=== PATIENT | female | born 1960 | race African-American/Black ===

== ENCOUNTER 2018-08-21 12:58 | Inpatient (IN) | payer MEDICARE, MEDICAID ==
[~2018-08-21] VITALS: Ht 157.5 cm; Wt 78.2 kg
[~2018-08-21 12:58] MED LIST: ASPI-1159 PO; ATEN50TA PO; ATOR40TA70 PO; BACL-141 GT; CANA100T PO; CLON0.2T PO; DOCU-138 PO; ECON15CR11 TP; FURO-151 PO; GABA-290 PO; INSLAN SQ; KETOCONAZOLE; LEVA15HF4 IH; LIRA0.6P SQ; LISI40TA4 PO; LYR25 PO; METF-416 PO; NASOI BOTHNSTRLS; OLOP2.5D EACHEYE
[2018-08-21 14:54] LABS: BASOPHILS % 1.2 % (0.0-2.0); EOSINOPHILS % 0.3 % (0.0-5.0); HEMATOCRIT. 25.8 % (36.0-48.0); HEMOGLOBIN. 8.1 g/dL (12.0-16.0); LYMPHOCYTES % 13.6 % (20.0-50.0); MEAN CORPUSCULAR HEMOGLOBIN 25.1 pg (28.0-32.0); MEAN CORPUSCULAR VOLUME 79.7 fL (81.0-99.0); MEAN PLATELET VOLUME 7.5 fl (7.4-10.4); MONOCYTES % 3.2 % (2.0-8.0); NEUTROPHILS % 81.7 % (40.0-76.0); PLATELET 455 x1000/uL (130-400); RED BLOOD CELL COUNT 3.23 mill/uL (4.2-5.4); RED CELL DISTRIBUTION WIDTH 15.9 % (11.6-14.6)
[2018-08-21 15:02] LABS: CHLORIDE 102 mEq/L (98-107); PROTHROMBIN TIME 9.9 sec (9.1-11.1)
[2018-08-21] MEDS ORDERED: DOCUSATE SODIUM 100MG CAPSULE PO PRN (15:30)
[2018-08-21] MEDS ORDERED: ACETAMINOPHEN 325MG TABLET PO PRN (15:30)
[2018-08-21] MEDS ORDERED: ONDANSETRON HCL 4MG/2ML INJ IV PRN (15:30)
[2018-08-21] MEDS ORDERED: KETOROLAC 30MG/ML VIAL IV ONE (15:30)
[2018-08-21 15:56] LABS: CLARITY URINE CLEAR (CLEAR); COLOR URINE YELLOW (YELLOW); KETONES URINE NEGATIVE (NEGATIVE); LEUKOCYTE ESTERASE URINE NEGATIVE (NEGATIVE); NITRITE URINE NEGATIVE (NEGATIVE); OCCULT BLOOD URINE NEGATIVE (NEGATIVE); PROTEIN URINE NEGATIVE (NEGATIVE); SPECIFIC GRAVITY URINE 1.022 (1.005-1.030); UROBILINOGEN URINE 0.2 E.U./dL (0.2-1.0)
[2018-08-21] MEDS: CLONIDINE 0.1MG TABLET PO PRN (16:19)
[2018-08-21] MEDS ORDERED: MORPHINE SULFATE 2 MG/ML CPJ (NOT FOR IM USE) IV PRN (16:45)
[2018-08-21] MEDS ORDERED: MORPHINE SULFATE 4 MG/ML CPJ (NOT FOR IM USE) IV PRN ×2 (16:46→19:20)
[2018-08-21] MEDS ORDERED: HYDRALAZINE 20MG/ML VIAL IV PRN (19:15)
[2018-08-21] MEDS ORDERED: HYDRALAZINE 20MG/ML VIAL IV NR (19:15)
[2018-08-21 21:48] VITALS: BP 189/85
[2018-08-21 22:00] VITALS: BP 189/85
[2018-08-21] MEDS ORDERED: CANA100T MT (23:19)
[2018-08-21] MEDS ORDERED: HYDR50TA55 MT (23:19)
[2018-08-21] MEDS ORDERED: PREG100C MT (23:19)
[2018-08-21] MEDS ORDERED: CLOT14.2 TP (23:19)
[2018-08-21] MEDS ORDERED: ATOR20TA65 MT (23:19)
[2018-08-21] MEDS ORDERED: DIPH25TA24 MT (23:19)
[2018-08-21] MEDS ORDERED: LORA1TAB MT (23:19)
[2018-08-21] MEDS ORDERED: BUSP7.5T6 MT (23:19)
[2018-08-21] MEDS ORDERED: DULO60CA63 MT (23:19)
[2018-08-21] MEDS ORDERED: POTA10CA42 MT (23:19)
[2018-08-21] MEDS: HYDROMORPHONE HCL/PF 2MG/ML CPJ IV PRN (23:32)
[2018-08-21] MEDS: LISINOPRIL 20MG TABLET PO SCH (23:57)
[2018-08-21] MEDS: AMLODIPINE 10MG TABLET PO SCH (23:58)
[2018-08-22] VITALS: BP 170/66
[2018-08-22] MEDS: DEXAMETHASONE 4MG/ML 1ML VIAL IV SCH ×4 (01:39→17:07)
[2018-08-22] MEDS: SODIUM CHLORIDE 0.45% 1,000 ML IV SCH ×2 (01:41→15:40)
[2018-08-22] MEDS: LORAZEPAM 2MG/ML CPJ IV PRN ×3 (01:57→18:09)
[2018-08-22 04:00] VITALS: BP 164/71
[2018-08-22] MEDS ORDERED: DEXTROSE 50% WATER 50ML SYRINGE IV PRN (04:15)
[2018-08-22] MEDS: BLOOD SUGAR DIAGNOSTIC STRIP TEST SCH ×4 (05:50→20:31)
[2018-08-22 05:58] VITALS: BP 132/90
[2018-08-22] MEDS: HYDROMORPHONE HCL/PF 2MG/ML CPJ IV PRN ×5 (06:00→23:17)
[2018-08-22] MEDS: INSULIN LISPRO 100 UNITS/ML SUBCUT SCH ×4 (07:05→20:35)
[2018-08-22 07:30] VITALS: BP 149/79
[2018-08-22] MEDS: LISINOPRIL 20MG TABLET PO SCH ×2 (09:00→20:10)
[2018-08-22] MEDS: AMLODIPINE 10MG TABLET PO SCH (09:00)
[2018-08-22] MEDS: IPRATROPIUM/ALBUTEROL 0.5-3(2.5)MG/3ML NEB INH SCH (09:30)
[2018-08-22] MEDS ORDERED: INFLUENZA VIRUS VACCINE(AFLURIA) 0.5ML SYR IM ONE (10:00)
[2018-08-22 13:10] LABS: BASOPHILS % 0.5 % (0.0-2.0); HEMATOCRIT. 28.9 % (36.0-48.0); LYMPHOCYTES % 9.1 % (20.0-50.0); MEAN CORPUSCULAR HEMOGLOBIN 24.6 pg (28.0-32.0); MEAN CORPUSCULAR VOLUME 78.8 fL (81.0-99.0); MONOCYTES % 2.4 % (2.0-8.0); PLATELET 522 x1000/uL (130-400); RED BLOOD CELL COUNT 3.66 mill/uL (4.2-5.4); RED CELL DISTRIBUTION WIDTH 16.1 % (11.6-14.6)
[2018-08-22 14:05] LABS: CHLORIDE 101 mEq/L (98-107)
[2018-08-22 14:13] LABS: LDL CHOLESTEROL 91 mg/dL (5-100)
[2018-08-22 14:14] LABS: HDL CHOLESTEROL 73 mg/dL (40-59)
[2018-08-22 16:00] VITALS: BP 148/83
[2018-08-22 20:00] VITALS: BP 152/76
[2018-08-23] VITALS (56 sets, daily range): BP systolic 89–240; BP diastolic 54–168
[2018-08-23] MEDS: DEXAMETHASONE 4MG/ML 1ML VIAL IV SCH ×2 (00:14→06:06)
[2018-08-23] MEDS: IPRATROPIUM/ALBUTEROL 0.5-3(2.5)MG/3ML NEB INH SCH (02:10)
[2018-08-23] MEDS: HYDROMORPHONE HCL/PF 2MG/ML CPJ IV PRN ×4 (02:25→15:00)
[2018-08-23] MEDS: LORAZEPAM 2MG/ML CPJ IV PRN (03:01)
[2018-08-23 07:22] LABS: BASOPHILS % 0.3 % (0.0-2.0); HEMOGLOBIN. 8.2 g/dL (12.0-16.0); MEAN CORPUSCULAR HEMOGLOBIN 24.8 pg (28.0-32.0); MEAN CORPUSCULAR VOLUME 78.7 fL (81.0-99.0); MEAN PLATELET VOLUME 7.8 fl (7.4-10.4); MONOCYTES % 5.3 % (2.0-8.0); NEUTROPHILS % 84.4 % (40.0-76.0); PLATELET 492 x1000/uL (130-400); RED CELL DISTRIBUTION WIDTH 16.1 % (11.6-14.6)
[2018-08-23] MEDS: BLOOD SUGAR DIAGNOSTIC STRIP TEST SCH ×5 (07:32→23:56)
[2018-08-23] MEDS: INSULIN LISPRO 100 UNITS/ML SUBCUT SCH ×4 (07:32→23:57)
[2018-08-23 07:54] LABS: CHLORIDE 103 mEq/L (98-107)
[2018-08-23 08:16] LABS: PHOSPHORUS 4.3 mg/dL (2.5-4.9)
[2018-08-23 08:17] LABS: LDL CHOLESTEROL 86 mg/dL (5-100)
[2018-08-23 08:23] LABS: HDL CHOLESTEROL 71 mg/dL (40-59)
[2018-08-23] MEDS ORDERED: NORMAL SALINE 0.9% 10 ML SYR ONE (08:33)
[2018-08-23] MEDS ORDERED: GELATIN SPONGE,COMPRESSED SZ 100 ONE (08:33)
[2018-08-23] MEDS ORDERED: LIDOCAINE HCL/EPINEPHRINE 1%-EPI 1:100,000 20 ML VIAL ONE (08:33)
[2018-08-23] MEDS ORDERED: BACITRACIN 50,000 UNITS/VIAL ONE (08:33)
[2018-08-23] MEDS ORDERED: THROMBIN (BOVINE) 5000 UNITS/VIAL TOP ONE (08:33)
[2018-08-23] MEDS: AMLODIPINE 10MG TABLET PO SCH (09:00)
[2018-08-23] MEDS ORDERED: ROCURONIUM BROMIDE 10MG/ML VIAL 5ML IV ONE ×2 (09:14→09:50)
[2018-08-23] MEDS ORDERED: FENTANYL CITRATE/PF 50MCG/ML 2ML VIAL ONE (09:14)
[2018-08-23] MEDS ORDERED: NEOSTIGMINE METHYLSULFATE 1MG/ML 10 ML VIAL ONE (09:15)
[2018-08-23] MEDS ORDERED: MIDAZOLAM HCL 2 MG/2 ML VIAL ONE (09:15)
[2018-08-23] MEDS ORDERED: PROPOFOL 200MG/20ML VIAL IV ONE (09:15)
[2018-08-23] MEDS ORDERED: GLYCOPYRROLATE 0.2 MG/ML 2ML VIAL ONE (09:15)
[2018-08-23] MEDS ORDERED: DEXAMETHASONE 4MG/ML 1ML VIAL ONE (09:41)
[2018-08-23] MEDS ORDERED: ONDANSETRON HCL 4MG/2ML INJ ONE (09:41)
[2018-08-23] MEDS ORDERED: HYDROMORPHONE HCL/PF 2MG/ML (OR) ONE (09:42)
[2018-08-23] MEDS ORDERED: ONDANSETRON HCL 4MG/2ML INJ IV PRN (10:15)
[2018-08-23] MEDS ORDERED: HYDROMORPHONE HCL/PF 2MG/ML CPJ IV PRN (10:15)
[2018-08-23] MEDS ORDERED: MEPERIDINE HCL/PF 25MG/ML CPJ IV PRN (10:15)
[2018-08-23] MEDS: DEXT 5%/LACTATED RINGERS 1,000 ML IV SCH ×2 (11:30→22:33)
[2018-08-23] MEDS ORDERED: HYDROMORPHONE PCA 10MG/50ML IV PRN (11:45)
[2018-08-23] MEDS ORDERED: NALOXONE INJ IV PRN (11:45)
[2018-08-23] MEDS ORDERED: ONDANSETRON INJ IV PRN (11:45)
[2018-08-23] MEDS: LABETALOL 5MG/ML SYR 20 MG/4 ML SYRINGE IV PRN ×3 (11:51→12:16)
[2018-08-23] MEDS ORDERED: NICARDIPINE 100 MG in SODIUM CHLORIDE 0.9% 60 ML IV PRN (12:00)
[2018-08-23] MEDS: PROPOFOL 10MG/ML 100ML 100 ML IV PRN ×3 (12:21→22:55)
[2018-08-23 12:31] LABS: BG BASE EXCESS -4.8 mmol/L (-2.0-2.0); BG CARBOXYHEMOGLOBIN 0.8 % (0.5-1.5); BG DEOXYHEMOGLOBIN 1.9 % (0.0-5.0); BG FRACTION INSPIRED OXYGEN 60; BG HCO3 ACT 21.5 mmol/L (22.0-26.0); BG METHEMOGLOBIN 0.2 % (0.0-1.5); BG OXYGEN SATURATION 98.1 % (92.0-98.5); BG OXYHEMOGLOBIN 97.1 % (94.0-97.0); BG PCO2 44.9 mmHg (35.0-45.0); BG PH 7.299 (7.350-7.450); BG PO2 131.7 mmHg (75.0-100.0); BG SAMPLE SITE RIGHT BRACHIAL; BG TIDAL VOLUME(mL) 500 mL; BG TOTAL HEMOGLOBIN 11.7 g/dL (12.0-18.0); BG VENT MODE VENT - A/C; BG VENT RATE 10 set
[2018-08-23] MEDS ORDERED: CEFAZOLIN SODIUM 1000MG/VIAL IV SCH (14:00)
[2018-08-23] MEDS ORDERED: DEXTROSE 50% WATER 50ML SYRINGE IV PRN ×2 (14:00→15:15)
[2018-08-23] MEDS ORDERED: BLOOD SUGAR DIAGNOSTIC STRIP TEST SCH (14:00)
[2018-08-23] MEDS ORDERED: IPRATROPIUM/ALBUTEROL 0.5-3(2.5)MG/3ML NEB HHN PRN (14:15)
[2018-08-23] MEDS: DEXAMETHASONE 10 MG/ML VIAL IV SCH ×3 (14:54→23:48)
[2018-08-23] MEDS: CEFAZOLIN 1000MG PREMIX 50 ML IV SCH ×2 (15:15→22:32)
[2018-08-23] MEDS ORDERED: INSULIN LISPRO 100 UNITS/ML SUBCUT SCH (17:00)
[2018-08-23] MEDS: ENALAPRIL 2.5MG/2ML VIAL 2ML IV SCH ×2 (18:00→23:48)
[2018-08-23] MEDS: MORPHINE SULFATE 4 MG/ML CPJ (NOT FOR IM USE) IV PRN (23:47)
[2018-08-24] VITALS (84 sets, daily range): BP systolic 90–164; BP diastolic 18–117
[2018-08-24] MEDS: IPRATROPIUM/ALBUTEROL 0.5-3(2.5)MG/3ML NEB INH SCH ×6 (00:08→20:38)
[2018-08-24] MEDS: PROPOFOL 10MG/ML 100ML 100 ML IV PRN ×6 (01:17→23:03)
[2018-08-24] MEDS: MORPHINE SULFATE 4 MG/ML CPJ (NOT FOR IM USE) IV PRN ×2 (04:07→11:34)
[2018-08-24] MEDS: DEXAMETHASONE 10 MG/ML VIAL IV SCH (05:17)
[2018-08-24] MEDS: CEFAZOLIN 1000MG PREMIX 50 ML IV SCH ×3 (05:17→21:15)
[2018-08-24] MEDS: BLOOD SUGAR DIAGNOSTIC STRIP TEST SCH ×4 (05:18→23:05)
[2018-08-24] MEDS: ENALAPRIL 2.5MG/2ML VIAL 2ML IV SCH ×4 (05:18→23:01)
[2018-08-24 06:00] LABS: HEMATOCRIT. 22.9 % (36.0-48.0); HEMOGLOBIN. 7.2 g/dL (12.0-16.0); MEAN CORPUSCULAR HEMOGLOBIN 24.9 pg (28.0-32.0); MEAN CORPUSCULAR VOLUME 79.2 fL (81.0-99.0); MEAN PLATELET VOLUME 7.7 fl (7.4-10.4); PLATELET 416 x1000/uL (130-400)
[2018-08-24 06:02] LABS: CHLORIDE 111 mEq/L (98-107)
[2018-08-24] MEDS: INSULIN LISPRO 100 UNITS/ML SUBCUT SCH ×4 (06:26→23:05)
[2018-08-24] MEDS: FENTANYL CITRATE/PF 500 MCG in SODIUM CHLORIDE 0.9% 40 ML IV PRN ×2 (06:28→09:49)
[2018-08-24] MEDS: DEXT 5%/LACTATED RINGERS 1,000 ML IV SCH ×3 (07:30→17:30)
[2018-08-24] MEDS: AMLODIPINE 10MG TABLET PO SCH (08:05)
[2018-08-24] MEDS: PANTOPRAZOLE SODIUM 40 MG/VIAL IV SCH (09:12)
[2018-08-24] MEDS: HYDRALAZINE 20MG/ML VIAL IV PRN (09:52)
[2018-08-24 10:35] LABS: PLATELET ESTIMATE SLIGHTLY INCREASED
[2018-08-24] MEDS ORDERED: LIDOCAINE HCL 1% 20ML VIAL (Pyxis) INJ ONE (10:42)
[2018-08-24] MEDS: DEXAMETHASONE 4MG/ML 1ML VIAL IV SCH ×3 (12:39→23:01)
[2018-08-24] MEDS ORDERED: PROPOFOL 10MG/ML 100ML 100 ML IV PRN ×2 (13:30→16:00)
[2018-08-24] MEDS: FENTANYL CITRATE/PF 1,000 MCG in SODIUM CHLORIDE 0.9% 80 ML IV PRN ×2 (15:36→23:58)
[2018-08-24] MEDS: IPRATROPIUM/ALBUTEROL 0.5-3(2.5)MG/3ML NEB HHN SCH ×2 (20:10→20:15)
[2018-08-24] MEDS: QUETIAPINE FUMARATE 25MG TABLET PO SCH (21:00)
[2018-08-25] VITALS (92 sets, daily range): BP systolic 104–165; BP diastolic 54–110
[2018-08-25] MEDS: DEXT 5%/LACTATED RINGERS 1,000 ML IV SCH ×3 (02:04→23:54)
[2018-08-25] MEDS: PROPOFOL 10MG/ML 100ML 100 ML IV PRN ×2 (02:37→06:39)
[2018-08-25] MEDS: IPRATROPIUM/ALBUTEROL 0.5-3(2.5)MG/3ML NEB INH SCH (02:41)
[2018-08-25] MEDS: BLOOD SUGAR DIAGNOSTIC STRIP TEST SCH ×4 (05:24→23:53)
[2018-08-25] MEDS: DEXAMETHASONE 4MG/ML 1ML VIAL IV SCH ×2 (05:37→11:54)
[2018-08-25] MEDS: ENALAPRIL 2.5MG/2ML VIAL 2ML IV SCH ×4 (05:38→23:53)
[2018-08-25] MEDS: INSULIN LISPRO 100 UNITS/ML SUBCUT SCH ×4 (05:39→23:55)
[2018-08-25] MEDS: CEFAZOLIN 1000MG PREMIX 50 ML IV SCH ×2 (06:45→14:24)
[2018-08-25] MEDS: QUETIAPINE FUMARATE 25MG TABLET PO SCH (08:10)
[2018-08-25] MEDS: PANTOPRAZOLE SODIUM 40 MG/VIAL IV SCH (08:10)
[2018-08-25] MEDS: LORAZEPAM 2MG/ML CPJ IV PRN ×2 (08:10→12:53)
[2018-08-25] MEDS: AMLODIPINE 10MG TABLET PO SCH (08:10)
[2018-08-25] MEDS: DIPHENHYDRAMINE INJ IV PRN ×2 (08:10→13:04)
[2018-08-25] MEDS: FENTANYL CITRATE/PF 1,000 MCG in SODIUM CHLORIDE 0.9% 80 ML IV PRN (08:11)
[2018-08-25] MEDS: IPRATROPIUM/ALBUTEROL 0.5-3(2.5)MG/3ML NEB HHN SCH ×2 (08:12→13:48)
[2018-08-25 08:27] LABS: BASOPHILS % 0.3 % (0.0-2.0); HEMATOCRIT. 25.6 % (36.0-48.0); HEMOGLOBIN. 8.2 g/dL (12.0-16.0); LYMPHOCYTES % 8.8 % (20.0-50.0); MEAN CORPUSCULAR HEMOGLOBIN 25.8 pg (28.0-32.0); MEAN CORPUSCULAR VOLUME 80.7 fL (81.0-99.0); MEAN PLATELET VOLUME 7.8 fl (7.4-10.4); MONOCYTES % 8.4 % (2.0-8.0); NEUTROPHILS % 82.5 % (40.0-76.0); PLATELET 367 x1000/uL (130-400); RED BLOOD CELL COUNT 3.17 mill/uL (4.2-5.4)
[2018-08-25] MEDS ORDERED: PROPOFOL 10MG/ML 100ML 100 ML IV PRN (08:30)
[2018-08-25 08:32] LABS: CHLORIDE 114 mEq/L (98-107)
[2018-08-25] MEDS: MORPHINE SULFATE 4 MG/ML CPJ (NOT FOR IM USE) IV PRN ×3 (08:38→23:53)
[2018-08-25 08:43] LABS: TOTAL IRON BINDING CAPACITY 359 ug/dL (250-450)
[2018-08-25 10:46] LABS: BG BASE EXCESS -0.8 mmol/L (-2.0-2.0); BG CARBOXYHEMOGLOBIN 0.8 % (0.5-1.5); BG DEOXYHEMOGLOBIN 1.2 % (0.0-5.0); BG FRACTION INSPIRED OXYGEN 40; BG HCO3 ACT 23.6 mmol/L (22.0-26.0); BG METHEMOGLOBIN 0.2 % (0.0-1.5); BG OXYGEN SATURATION 98.8 % (92.0-98.5); BG OXYHEMOGLOBIN 97.8 % (94.0-97.0); BG PCO2 37.8 mmHg (35.0-45.0); BG PH 7.414 (7.350-7.450); BG PO2 161.3 mmHg (75.0-100.0); BG SAMPLE SITE LEFT BRACHIAL; BG TOTAL HEMOGLOBIN 8.7 g/dL (12.0-18.0); BG VENT MODE VENT - CPAP
[2018-08-25] MEDS: HYDRALAZINE 20MG/ML VIAL IV PRN (11:53)
[2018-08-25] MEDS: CLONIDINE 0.1MG TABLET PO PRN ×2 (11:54→12:07)
[2018-08-25] MEDS ORDERED: LISINOPRIL 20MG TABLET PO SCH (12:15)
[2018-08-25] MEDS ORDERED: NALOXONE HCL 0.4 MG/ML 1ML VIAL IV NR (16:45)
[2018-08-25] MEDS ORDERED: DOCUSATE SODIUM 250MG CAPSULE PO SCH (17:00)
[2018-08-25] MEDS: LISINOPRIL 20MG TABLET PO SCH (21:41)
[2018-08-26] VITALS (67 sets, daily range): BP systolic 117–187; BP diastolic 17–144
[2018-08-26] MEDS ORDERED: MORPHINE SULFATE 10 MG/ML CPJ IV ONE (00:10)
[2018-08-26] MEDS: MORPHINE SULFATE 4 MG/ML CPJ (NOT FOR IM USE) IV PRN ×9 (00:30→23:40)
[2018-08-26] MEDS: LORAZEPAM 2MG/ML CPJ IV PRN (03:01)
[2018-08-26 05:54] LABS: BASOPHILS % 0.5 % (0.0-2.0); EOSINOPHILS % 0.2 % (0.0-5.0); HEMATOCRIT. 26.2 % (36.0-48.0); HEMOGLOBIN. 8.2 g/dL (12.0-16.0); LYMPHOCYTES % 23.6 % (20.0-50.0); MEAN CORPUSCULAR HEMOGLOBIN 25.7 pg (28.0-32.0); MEAN CORPUSCULAR VOLUME 82.3 fL (81.0-99.0); MEAN PLATELET VOLUME 7.7 fl (7.4-10.4); MONOCYTES % 9.8 % (2.0-8.0); NEUTROPHILS % 65.9 % (40.0-76.0); PLATELET 345 x1000/uL (130-400); RED BLOOD CELL COUNT 3.18 mill/uL (4.2-5.4); RED CELL DISTRIBUTION WIDTH 16.3 % (11.6-14.6)
[2018-08-26 06:06] LABS: CHLORIDE 115 mEq/L (98-107)
[2018-08-26] MEDS: ENALAPRIL 2.5MG/2ML VIAL 2ML IV SCH (06:07)
[2018-08-26] MEDS: BLOOD SUGAR DIAGNOSTIC STRIP TEST SCH ×4 (06:07→23:43)
[2018-08-26] MEDS: INSULIN LISPRO 100 UNITS/ML SUBCUT SCH ×4 (06:08→23:43)
[2018-08-26] MEDS ORDERED: POTASSIUM CHLORIDE 20MEQ/PACKET PO SCH (08:00)
[2018-08-26] MEDS: IPRATROPIUM/ALBUTEROL 0.5-3(2.5)MG/3ML NEB INH SCH ×2 (08:48→14:10)
[2018-08-26] MEDS ORDERED: DOCUSATE SODIUM SUGAR FREE 100MG/10ML UDC NG SCH (09:15)
[2018-08-26] MEDS: LISINOPRIL 20MG TABLET PO SCH ×2 (09:15→20:31)
[2018-08-26] MEDS: AMLODIPINE 10MG TABLET PO SCH (09:15)
[2018-08-26] MEDS: PANTOPRAZOLE SODIUM 40 MG/VIAL IV SCH (09:15)
[2018-08-26] MEDS: DOCUSATE SODIUM SUGAR FREE 100MG/10ML UDC NG SCH ×2 (09:41→18:20)
[2018-08-26] MEDS: DEXT 5%/LACTATED RINGERS 1,000 ML IV SCH (09:43)
[2018-08-26] MEDS: BUSPIRONE HCL 5MG TABLET PO SCH ×2 (09:50→20:32)
[2018-08-26] MEDS: DULOXETINE HCL 60MG DR CAPSULE PO SCH (09:50)
[2018-08-26] MEDS: HYDRALAZINE 20MG/ML VIAL IV PRN (11:57)
[2018-08-26] MEDS: DEXAMETHASONE 10 MG/ML VIAL IV SCH (12:21)
[2018-08-26] MEDS: CLONIDINE 0.1MG TABLET PO SCH ×2 (14:41→22:29)
[2018-08-26] MEDS: ATENOLOL 50 MG TABLET PO SCH (20:32)
[2018-08-26] MEDS: IPRATROPIUM/ALBUTEROL 0.5-3(2.5)MG/3ML NEB HHN SCH (21:01)
[2018-08-27] VITALS (28 sets, daily range): BP systolic 108–188; BP diastolic 53–96
[2018-08-27] MEDS: IPRATROPIUM/ALBUTEROL 0.5-3(2.5)MG/3ML NEB HHN SCH ×2 (01:26→19:50)
[2018-08-27] MEDS: MORPHINE SULFATE 4 MG/ML CPJ (NOT FOR IM USE) IV PRN ×7 (01:38→17:11)
[2018-08-27] MEDS: CLONIDINE 0.1MG TABLET PO SCH ×3 (05:11→22:51)
[2018-08-27] MEDS: BLOOD SUGAR DIAGNOSTIC STRIP TEST SCH ×4 (05:13→21:00)
[2018-08-27] MEDS: INSULIN LISPRO 100 UNITS/ML SUBCUT SCH ×3 (05:15→17:03)
[2018-08-27] MEDS: PANTOPRAZOLE SODIUM 40 MG/VIAL IV SCH (08:19)
[2018-08-27] MEDS: DEXAMETHASONE 10 MG/ML VIAL IV SCH (08:20)
[2018-08-27] MEDS: DOCUSATE SODIUM SUGAR FREE 100MG/10ML UDC NG SCH ×2 (08:20→16:57)
[2018-08-27] MEDS: LISINOPRIL 20MG TABLET PO SCH ×2 (08:21→22:51)
[2018-08-27] MEDS: ATENOLOL 50 MG TABLET PO SCH ×2 (08:21→22:50)
[2018-08-27] MEDS: DULOXETINE HCL 60MG DR CAPSULE PO SCH (08:22)
[2018-08-27] MEDS: AMLODIPINE 10MG TABLET PO SCH (08:22)
[2018-08-27] MEDS: BUSPIRONE HCL 5MG TABLET PO SCH (08:22)
[2018-08-27 09:03] LABS: BASOPHILS % 0.6 % (0.0-2.0); EOSINOPHILS % 0.8 % (0.0-5.0); HEMATOCRIT. 27.1 % (36.0-48.0); HEMOGLOBIN. 8.7 g/dL (12.0-16.0); LYMPHOCYTES % 22.2 % (20.0-50.0); MEAN CORPUSCULAR HEMOGLOBIN 26.1 pg (28.0-32.0); MEAN CORPUSCULAR VOLUME 81.2 fL (81.0-99.0); MEAN PLATELET VOLUME 7.6 fl (7.4-10.4); MONOCYTES % 8.2 % (2.0-8.0); NEUTROPHILS % 68.2 % (40.0-76.0); PLATELET 383 x1000/uL (130-400); RED BLOOD CELL COUNT 3.34 mill/uL (4.2-5.4); RED CELL DISTRIBUTION WIDTH 16.2 % (11.6-14.6)
[2018-08-27 09:42] LABS: CHLORIDE 104 mEq/L (98-107)
[2018-08-27] MEDS: ASPIRIN 81MG TABLET PO SCH ×2 (13:15→15:19)
[2018-08-27] MEDS: IPRATROPIUM/ALBUTEROL 0.5-3(2.5)MG/3ML NEB INH SCH (13:46)
[2018-08-27] MEDS ORDERED: DEXTROSE 50% WATER 50ML SYRINGE IV PRN (14:00)
[2018-08-27] MEDS: LORAZEPAM 2MG/ML CPJ IV PRN (18:56)
[2018-08-28] VITALS: BP 112/54
[2018-08-28] MEDS: INSULIN LISPRO 100 UNITS/ML SUBCUT SCH ×5 (00:35→23:40)
[2018-08-28] MEDS: BUSPIRONE HCL 5MG TABLET PO SCH ×3 (00:39→22:21)
[2018-08-28] MEDS: MORPHINE SULFATE 4 MG/ML CPJ (NOT FOR IM USE) IV PRN ×6 (01:38→22:01)
[2018-08-28] MEDS: IPRATROPIUM/ALBUTEROL 0.5-3(2.5)MG/3ML NEB HHN SCH ×5 (01:53→21:07)
[2018-08-28 04:00] VITALS: BP 127/64
[2018-08-28] MEDS: CLONIDINE 0.1MG TABLET PO SCH ×3 (06:43→22:00)
[2018-08-28 07:25] LABS: BASOPHILS % 0.3 % (0.0-2.0); EOSINOPHILS % 1.9 % (0.0-5.0); HEMOGLOBIN. 8.6 g/dL (12.0-16.0); LYMPHOCYTES % 25.7 % (20.0-50.0); MEAN CORPUSCULAR HEMOGLOBIN 25.8 pg (28.0-32.0); MEAN CORPUSCULAR VOLUME 80.8 fL (81.0-99.0); MEAN PLATELET VOLUME 7.7 fl (7.4-10.4); MONOCYTES % 7.5 % (2.0-8.0); NEUTROPHILS % 64.6 % (40.0-76.0); PLATELET 375 x1000/uL (130-400); RED BLOOD CELL COUNT 3.34 mill/uL (4.2-5.4); RED CELL DISTRIBUTION WIDTH 16.2 % (11.6-14.6)
[2018-08-28 07:50] LABS: CHLORIDE 104 mEq/L (98-107)
[2018-08-28 07:59] LABS: PHOSPHORUS 3.2 mg/dL (2.5-4.9)
[2018-08-28 08:00] VITALS: BP 110/59
[2018-08-28] MEDS: BLOOD SUGAR DIAGNOSTIC STRIP TEST SCH ×4 (08:14→21:00)
[2018-08-28] MEDS: AMLODIPINE 10MG TABLET PO SCH (08:30)
[2018-08-28] MEDS: LISINOPRIL 20MG TABLET PO SCH ×2 (08:31→21:00)
[2018-08-28] MEDS: PANTOPRAZOLE SODIUM 40 MG/VIAL IV SCH (08:31)
[2018-08-28] MEDS: DEXAMETHASONE 10 MG/ML VIAL IV SCH (08:31)
[2018-08-28] MEDS: DOCUSATE SODIUM SUGAR FREE 100MG/10ML UDC NG SCH (08:31)
[2018-08-28] MEDS: DULOXETINE HCL 60MG DR CAPSULE PO SCH (08:31)
[2018-08-28] MEDS: ATENOLOL 50 MG TABLET PO SCH ×2 (08:47→21:00)
[2018-08-28] MEDS ORDERED: POTASSIUM CHLORIDE 20MEQ TABLET SR PO SCH (09:15)
[2018-08-28] MEDS: IPRATROPIUM/ALBUTEROL 0.5-3(2.5)MG/3ML NEB INH SCH ×2 (09:34→20:11)
[2018-08-28] MEDS ORDERED: NA PHOS,M-B/NA PHOS,DI-BA ENEMA 118ML PR SCH (10:45)
[2018-08-28] MEDS ORDERED: BISACODYL 10MG SUPP PR PRN (10:45)
[2018-08-28 12:00] VITALS: BP 127/59
[2018-08-28] MEDS: LACTULOSE 20G/30ML UDC PO SCH ×2 (12:42→14:23)
[2018-08-28] MEDS: GABAPENTIN 100MG CAPSULE PO SCH ×2 (14:23→22:04)
[2018-08-28 16:00] VITALS: BP 114/53
[2018-08-28] MEDS: DOCUSATE SODIUM 100MG CAPSULE PO SCH (16:49)
[2018-08-28] MEDS ORDERED: LACTULOSE 20G/30ML UDC PO SCH (18:00)
[2018-08-28 20:00] VITALS: BP 121/1
[2018-08-28] MEDS ORDERED: POLYETHYLENE GLYCOL 3350 (17GM) 1 DOSE PACK PO SCH (21:00)
[2018-08-29] VITALS: BP 119/67
[2018-08-29] MEDS: IPRATROPIUM/ALBUTEROL 0.5-3(2.5)MG/3ML NEB HHN SCH ×2 (01:47→11:42)
[2018-08-29] MEDS: MORPHINE SULFATE 4 MG/ML CPJ (NOT FOR IM USE) IV PRN ×2 (02:19→12:08)
[2018-08-29] MEDS: LORAZEPAM 2MG/ML CPJ IV PRN (02:19)
[2018-08-29 04:00] VITALS: BP 143/75
[2018-08-29] MEDS: GABAPENTIN 100MG CAPSULE PO SCH ×2 (06:21→16:39)
[2018-08-29] MEDS: CLONIDINE 0.1MG TABLET PO SCH ×2 (06:21→16:39)
[2018-08-29 07:12] LABS: BASOPHILS % 0.2 % (0.0-2.0); EOSINOPHILS % 2.1 % (0.0-5.0); HEMATOCRIT. 25.8 % (36.0-48.0); HEMOGLOBIN. 8.2 g/dL (12.0-16.0); LYMPHOCYTES % 28.4 % (20.0-50.0); MEAN CORPUSCULAR HEMOGLOBIN 25.8 pg (28.0-32.0); MEAN CORPUSCULAR VOLUME 81.3 fL (81.0-99.0); MEAN PLATELET VOLUME 7.6 fl (7.4-10.4); MONOCYTES % 7.7 % (2.0-8.0); NEUTROPHILS % 61.6 % (40.0-76.0); PLATELET 364 x1000/uL (130-400); RED BLOOD CELL COUNT 3.17 mill/uL (4.2-5.4); RED CELL DISTRIBUTION WIDTH 16.3 % (11.6-14.6)
[2018-08-29] MEDS: BLOOD SUGAR DIAGNOSTIC STRIP TEST SCH ×2 (07:20→12:17)
[2018-08-29] MEDS: BUSPIRONE HCL 5MG TABLET PO SCH (08:33)
[2018-08-29] MEDS: ATENOLOL 50 MG TABLET PO SCH (08:33)
[2018-08-29] MEDS: DOCUSATE SODIUM 100MG CAPSULE PO SCH (08:33)
[2018-08-29] MEDS: LISINOPRIL 20MG TABLET PO SCH (08:33)
[2018-08-29] MEDS: DULOXETINE HCL 60MG DR CAPSULE PO SCH (08:33)
[2018-08-29] MEDS: ASPIRIN 81MG TABLET PO SCH (08:33)
[2018-08-29] MEDS: AMLODIPINE 10MG TABLET PO SCH (08:33)
[2018-08-29] MEDS: DEXAMETHASONE 10 MG/ML VIAL IV SCH (08:36)
[2018-08-29] MEDS: INSULIN LISPRO 100 UNITS/ML SUBCUT SCH ×2 (08:41→12:16)
[2018-08-29] MEDS ORDERED: NA PHOS,M-B/NA PHOS,DI-BA ENEMA 118ML PR PRN (09:00)
[2018-08-29] MEDS: PANTOPRAZOLE SODIUM 40 MG/VIAL IV SCH (09:00)
[2018-08-29 09:50] LABS: CHLORIDE 105 mEq/L (98-107)
[2018-08-29 09:51] LABS: PHOSPHORUS 3.3 mg/dL (2.5-4.9)
[2018-08-29 12:08] VITALS: BP 120/66
== END 2018-08-29 17:00 | DRG 471 ==
LOC: ER 12:58 → 8WST 15:26 → EDBEDREQSVC 15:33 → EDBEDREQ 15:33 → ENRESERV 16:15 → CANRESERV 16:15 → ENRESERV 16:16 → CANRESERV 16:16 → EDBEDREQSVC 17:47 → ENRESERV 19:38 → MICUNO 08-23 11:27 → 6EST 08-27 14:19
PROVIDERS: ADMIT Internal Medicine Nephrology; ATTEND Internal Medicine Nephrology
PROC: 0BH17EZ Insertion of Endotracheal Airway into Trachea, Via Natural or Artificial Opening (ICD-10-PCS; 2018-08-23)
PROC: 5A1945Z Respiratory Ventilation, 24-96 Consecutive Hours (ICD-10-PCS; 2018-08-23)
PROC: 4A11X4G Monitoring of Peripheral Nervous Electrical Activity, Intraoperative, External Approach (ICD-10-PCS; 2018-08-23)
PROC: 0RG1071 Fusion of Cervical Vertebral Joint with Autologous Tissue Substitute, Posterior Approach, Posterior Column, Open Approach (ICD-10-PCS; principal; 2018-08-23 10:30)
PROC: 30233N1 Transfusion of Nonautologous Red Blood Cells into Peripheral Vein, Percutaneous Approach (ICD-10-PCS; 2018-08-24)
DX: M48.02 Spinal stenosis, cervical region (principal); G82.50 Quadriplegia, unspecified; M47.12 Other spondylosis with myelopathy, cervical region; E66.01 Morbid (severe) obesity due to excess calories; D50.9 Iron deficiency anemia, unspecified; E11.9 Type 2 diabetes mellitus without complications; E78.00 Pure hypercholesterolemia, unspecified; E78.5 Hyperlipidemia, unspecified; E87.6 Hypokalemia; F20.9 Schizophrenia, unspecified; I11.9 Hypertensive heart disease without heart failure; I25.10 Atherosclerotic heart disease of native coronary artery without angina pectoris; D72.829 Elevated white blood cell count, unspecified; F17.210 Nicotine dependence, cigarettes, uncomplicated; G89.4 Chronic pain syndrome; K59.00 Constipation, unspecified; M79.7 Fibromyalgia; R13.10 Dysphagia, unspecified; F41.9 Anxiety disorder, unspecified; M19.90 Unspecified osteoarthritis, unspecified site; R26.9 Unspecified abnormalities of gait and mobility; W06.XXXA Fall from bed, initial encounter; M47.22 Other spondylosis with radiculopathy, cervical region; S14.109A Unspecified injury at unspecified level of cervical spinal cord, initial encounter; Z79.4 Long term (current) use of insulin; Z79.82 Long term (current) use of aspirin; Z86.73 Personal history of transient ischemic attack (TIA), and cerebral infarction without residual deficits; Z79.899 Other long term (current) drug therapy; Z82.49 Family history of ischemic heart disease and other diseases of the circulatory system; Z68.31 Body mass index [BMI] 31.0-31.9, adult; Z95.5 Presence of coronary angioplasty implant and graft; Y93.89 Activity, other specified; Y92.89 Other specified places as the place of occurrence of the external cause; Y99.8 Other external cause status
CPT/HCPCS: 36415; 36600; 71045; 72040; 72141; 72192; 73700; 80048; 80061; 82375; 82805; 82962; 83540; 83550; 83735; 84100; 84478; 84484; 86850; 86900; 86920; 88304; 88311; 92610; 93005; 93306; 93970; 94003; 94640; 95925; 95926; 95928; 95929; 96374; 97116; 97163; 97167; 97530; 99285; A4216; A6261; C1713; C9113; J0360; J0690; J1100; J1170; J1200; J1815; J1885; J2060; J2250; J2270; J2310; J2405; J2704; J2710; J3010; J3490; J7040; J7050; J7121; J7620; L0172; P9016

== ENCOUNTER 2018-08-29 17:42 | Inpatient (IN) | payer MEDICARE, MEDICAID ==
[~2018-08-29] VITALS: Ht 157.5 cm; Wt 78.0 kg
[~2018-08-29 17:42] MED LIST changes: +ATOR20TA65 MT; +BUSP7.5T6 MT; +CANA100T MT; -CANA100T PO; +CLOT14.2 TP; +DIPH25TA24 MT; +DULO60CA63 MT; +HYDR50TA55 MT; -KETOCONAZOLE; +LORA1TAB MT; +POTA10CA42 MT; +PREG100C MT
[2018-08-29 17:52] VITALS: BP 140/75
[2018-08-29] MEDS ORDERED: IPRATROPIUM/ALBUTEROL 0.5-3(2.5)MG/3ML NEB HHN PRN (18:00)
[2018-08-29] MEDS ORDERED: HYDRALAZINE HCL 10MG TABLET PO PRN (18:00)
[2018-08-29] MEDS ORDERED: ACETAMINOPHEN 325MG TABLET PO PRN (18:15)
[2018-08-29] MEDS ORDERED: BISACODYL 10MG SUPP PR PRN (18:15)
[2018-08-29] MEDS ORDERED: NA PHOS,M-B/NA PHOS,DI-BA ENEMA 118ML PR PRN (18:15)
[2018-08-29] MEDS ORDERED: CLONIDINE 0.1MG TABLET PO PRN (18:38)
[2018-08-29] MEDS ORDERED: LORAZEPAM 2MG/ML CPJ IV PRN (18:45)
[2018-08-29] MEDS ORDERED: ONDANSETRON HCL 4MG/2ML INJ IV PRN (18:45)
[2018-08-29 18:47] VITALS: BP 143/67
[2018-08-29 20:00] VITALS: BP 137/68
[2018-08-29] MEDS: POLYETHYLENE GLYCOL 3350 (17GM) 1 DOSE PACK PO SCH (21:00)
[2018-08-29] MEDS ORDERED: DEXTROSE 50% WATER 50ML SYRINGE IV PRN (21:00)
[2018-08-29] MEDS: ATENOLOL 50 MG TABLET PO SCH (21:00)
[2018-08-29] MEDS: BLOOD SUGAR DIAGNOSTIC STRIP TEST SCH (21:49)
[2018-08-29] MEDS: GABAPENTIN 100MG CAPSULE PO SCH (22:00)
[2018-08-29] MEDS: BUSPIRONE HCL 5MG TABLET PO SCH (22:00)
[2018-08-29] MEDS: CLONIDINE 0.1MG TABLET PO SCH (22:00)
[2018-08-29] MEDS: MORPHINE SULFATE 4 MG/ML CPJ (NOT FOR IM USE) IV PRN (22:01)
[2018-08-29] MEDS: IPRATROPIUM/ALBUTEROL 0.5-3(2.5)MG/3ML NEB HHN SCH (22:03)
[2018-08-29] MEDS: INSULIN LISPRO 100 UNITS/ML SUBCUT SCH (22:17)
[2018-08-30] MEDS: LISINOPRIL 20MG TABLET PO SCH ×3 (00:07→22:10)
[2018-08-30] MEDS: IPRATROPIUM/ALBUTEROL 0.5-3(2.5)MG/3ML NEB HHN SCH ×4 (03:40→19:48)
[2018-08-30] MEDS: MORPHINE SULFATE 4 MG/ML CPJ (NOT FOR IM USE) IV PRN ×4 (04:16→20:50)
[2018-08-30] MEDS: CLONIDINE 0.1MG TABLET PO SCH ×3 (06:00→22:00)
[2018-08-30] MEDS: BLOOD SUGAR DIAGNOSTIC STRIP TEST SCH ×4 (06:54→20:50)
[2018-08-30] MEDS: GABAPENTIN 100MG CAPSULE PO SCH ×3 (06:55→22:22)
[2018-08-30] MEDS: INSULIN LISPRO 100 UNITS/ML SUBCUT SCH ×4 (06:56→22:17)
[2018-08-30 07:06] LABS: RED BLOOD CELL COUNT 3.43 mill/uL (4.2-5.4)
[2018-08-30 07:07] LABS: BASOPHILS % 0.6 % (0.0-2.0); EOSINOPHILS % 1.4 % (0.0-5.0); HEMATOCRIT. 27.8 % (36.0-48.0); HEMOGLOBIN. 9.2 g/dL (12.0-16.0); LYMPHOCYTES % 25.8 % (20.0-50.0); MEAN CORPUSCULAR HEMOGLOBIN 26.8 pg (28.0-32.0); MEAN CORPUSCULAR VOLUME 81.2 fL (81.0-99.0); MEAN PLATELET VOLUME 7.7 fl (7.4-10.4); MONOCYTES % 7.1 % (2.0-8.0); NEUTROPHILS % 65.1 % (40.0-76.0); PLATELET 449 x1000/uL (130-400); RED CELL DISTRIBUTION WIDTH 16.6 % (11.6-14.6)
[2018-08-30 08:00] VITALS: BP 120/60
[2018-08-30 08:01] LABS: CHLORIDE 101 mEq/L (98-107)
[2018-08-30] MEDS ORDERED: PANTOPRAZOLE SODIUM 40 MG/VIAL IV SCH (09:00)
[2018-08-30] MEDS: ASPIRIN 81MG TABLET PO SCH (09:11)
[2018-08-30] MEDS: DEXAMETHASONE 4MG/ML 1ML VIAL IV SCH (09:11)
[2018-08-30] MEDS: DOCUSATE SODIUM 100MG CAPSULE PO SCH ×2 (09:11→17:48)
[2018-08-30] MEDS: FAMOTIDINE 20MG/2ML VIAL IV SCH ×2 (09:12→20:49)
[2018-08-30] MEDS: DULOXETINE HCL 60MG DR CAPSULE PO SCH (09:12)
[2018-08-30] MEDS: BUSPIRONE HCL 5MG TABLET PO SCH ×2 (09:12→20:49)
[2018-08-30] MEDS: ATENOLOL 50 MG TABLET PO SCH ×2 (09:13→21:00)
[2018-08-30] MEDS: AMLODIPINE 10MG TABLET PO SCH (09:13)
[2018-08-30] MEDS: HYDROCODONE/ACETAMINOPHEN 5/325MG TABLET PO PRN (17:49)
[2018-08-30 20:00] VITALS: BP 131/60
[2018-08-30] MEDS: POLYETHYLENE GLYCOL 3350 (17GM) 1 DOSE PACK PO SCH (20:49)
[2018-08-31] MEDS: IPRATROPIUM/ALBUTEROL 0.5-3(2.5)MG/3ML NEB HHN SCH ×4 (01:55→20:35)
[2018-08-31] MEDS: MORPHINE SULFATE 4 MG/ML CPJ (NOT FOR IM USE) IV PRN ×2 (05:09→19:13)
[2018-08-31] MEDS: CLONIDINE 0.1MG TABLET PO SCH ×3 (06:00→22:42)
[2018-08-31] MEDS: GABAPENTIN 100MG CAPSULE PO SCH ×3 (06:34→22:05)
[2018-08-31] MEDS: BLOOD SUGAR DIAGNOSTIC STRIP TEST SCH ×4 (06:35→21:20)
[2018-08-31] MEDS: INSULIN LISPRO 100 UNITS/ML SUBCUT SCH ×4 (06:37→21:20)
[2018-08-31 08:14] VITALS: BP 138/70
[2018-08-31] MEDS: DOCUSATE SODIUM 100MG CAPSULE PO SCH ×2 (08:56→16:49)
[2018-08-31] MEDS: ATENOLOL 50 MG TABLET PO SCH ×2 (08:57→21:08)
[2018-08-31] MEDS: AMLODIPINE 10MG TABLET PO SCH (08:57)
[2018-08-31] MEDS: LISINOPRIL 20MG TABLET PO SCH ×2 (08:58→21:07)
[2018-08-31] MEDS: ASPIRIN 81MG TABLET PO SCH (08:58)
[2018-08-31] MEDS: DULOXETINE HCL 60MG DR CAPSULE PO SCH (08:58)
[2018-08-31] MEDS: BUSPIRONE HCL 5MG TABLET PO SCH ×2 (08:58→21:07)
[2018-08-31] MEDS: DIPHENHYDRAMINE 50MG/ML VIAL IV PRN ×3 (08:59→22:44)
[2018-08-31] MEDS: FAMOTIDINE 20MG/2ML VIAL IV SCH ×2 (09:04→21:06)
[2018-08-31] MEDS: DEXAMETHASONE 4MG/ML 1ML VIAL IV SCH (09:04)
[2018-08-31] MEDS: HYDROCODONE/ACETAMINOPHEN 5/325MG TABLET PO PRN ×3 (10:57→22:06)
[2018-08-31] MEDS: LACTULOSE 20G/30ML UDC PO PRN (13:51)
[2018-08-31] MEDS ORDERED: NA PHOS,M-B/NA PHOS,DI-BA ENEMA 118ML PR NR (16:00)
[2018-08-31] MEDS ORDERED: INSULIN LISPRO 100 UNITS/ML SUBCUT NR (17:30)
[2018-08-31 20:00] VITALS: BP 138/76
[2018-08-31] MEDS: POLYETHYLENE GLYCOL 3350 (17GM) 1 DOSE PACK PO SCH (21:06)
[2018-08-31] MEDS: INSULIN GLARGINE UD 100 UNITS/ML SYR SUBCUT SCH (22:48)
[2018-09-01] MEDS: IPRATROPIUM/ALBUTEROL 0.5-3(2.5)MG/3ML NEB HHN SCH ×4 (01:26→20:43)
[2018-09-01] MEDS: MORPHINE SULFATE 4 MG/ML CPJ (NOT FOR IM USE) IV PRN ×4 (02:15→20:44)
[2018-09-01] MEDS ORDERED: LORAZEPAM 2MG/ML CPJ IV PRN (02:45)
[2018-09-01] MEDS: GABAPENTIN 100MG CAPSULE PO SCH (05:46)
[2018-09-01] MEDS: HYDROCODONE/ACETAMINOPHEN 5/325MG TABLET PO PRN (05:48)
[2018-09-01] MEDS: CLONIDINE 0.1MG TABLET PO SCH ×3 (05:48→23:39)
[2018-09-01] MEDS: INSULIN LISPRO 100 UNITS/ML SUBCUT SCH ×4 (06:02→21:57)
[2018-09-01] MEDS: BLOOD SUGAR DIAGNOSTIC STRIP TEST SCH ×4 (06:30→20:47)
[2018-09-01 06:55] LABS: EOSINOPHILS % 1.3 % (0.0-5.0); HEMATOCRIT. 26.6 % (36.0-48.0); HEMOGLOBIN. 8.5 g/dL (12.0-16.0); MEAN CORPUSCULAR HEMOGLOBIN 26.2 pg (28.0-32.0); MEAN CORPUSCULAR VOLUME 81.9 fL (81.0-99.0); MEAN PLATELET VOLUME 7.8 fl (7.4-10.4); MONOCYTES % 7.7 % (2.0-8.0); PLATELET 419 x1000/uL (130-400); RED BLOOD CELL COUNT 3.25 mill/uL (4.2-5.4); RED CELL DISTRIBUTION WIDTH 17.4 % (11.6-14.6)
[2018-09-01 07:38] LABS: FOLIC ACID (FOLATE) SERUM 12.7 ng/mL (>5.38)
[2018-09-01 08:00] VITALS: BP 136/75
[2018-09-01 08:07] LABS: CHLORIDE 101 mEq/L (98-107)
[2018-09-01 08:27] LABS: TOTAL IRON BINDING CAPACITY 302 ug/dL (250-450)
[2018-09-01] MEDS: ASPIRIN 81MG TABLET PO SCH (08:31)
[2018-09-01] MEDS: DULOXETINE HCL 60MG DR CAPSULE PO SCH (08:31)
[2018-09-01] MEDS: DOCUSATE SODIUM 100MG CAPSULE PO SCH ×2 (08:31→16:56)
[2018-09-01] MEDS: BUSPIRONE HCL 5MG TABLET PO SCH ×2 (08:32→21:50)
[2018-09-01] MEDS: AMLODIPINE 10MG TABLET PO SCH (08:32)
[2018-09-01] MEDS: ATENOLOL 50 MG TABLET PO SCH ×2 (08:33→21:50)
[2018-09-01] MEDS: FAMOTIDINE 20MG/2ML VIAL IV SCH ×2 (08:33→21:48)
[2018-09-01] MEDS: DEXAMETHASONE 4MG/ML 1ML VIAL IV SCH (08:34)
[2018-09-01] MEDS: LISINOPRIL 20MG TABLET PO SCH ×2 (08:39→21:50)
[2018-09-01] MEDS ORDERED: MAGNESIUM 2 G PREMIX 50 ML IV ONE (08:45)
[2018-09-01] MEDS: BISACODYL 10MG SUPP PR SCH (08:48)
[2018-09-01] MEDS ORDERED: NA PHOS,M-B/NA PHOS,DI-BA ENEMA 118ML PR PRN (09:00)
[2018-09-01] MEDS: PREGABALIN 75MG CAPSULE PO SCH ×2 (09:50→16:56)
[2018-09-01] MEDS ORDERED: MAGNESIUM SULFATE 2 GM in DEXTROSE 5% WATER 46 ML IV SCH (10:00)
[2018-09-01] MEDS: HYDROCODONE/ACETAMINOPHEN 10/325MG TABLET PO PRN ×3 (11:30→23:38)
[2018-09-01] MEDS: DIPHENHYDRAMINE 50MG/ML VIAL IV PRN (14:27)
[2018-09-01 20:00] VITALS: BP 136/70
[2018-09-01] MEDS: POLYETHYLENE GLYCOL 3350 (17GM) 1 DOSE PACK PO SCH (21:00)
[2018-09-01] MEDS: INSULIN GLARGINE UD 100 UNITS/ML SYR SUBCUT SCH (23:49)
[2018-09-02] MEDS: IPRATROPIUM/ALBUTEROL 0.5-3(2.5)MG/3ML NEB HHN SCH ×4 (01:43→20:54)
[2018-09-02] MEDS: MORPHINE SULFATE 4 MG/ML CPJ (NOT FOR IM USE) IV PRN ×3 (03:22→20:12)
[2018-09-02] MEDS: IRON SUCROSE COMPLEX 100 MG in SODIUM CHLORIDE 0.9% 100 ML IV SCH (06:06)
[2018-09-02] MEDS: HYDROCODONE/ACETAMINOPHEN 10/325MG TABLET PO PRN ×3 (06:18→23:35)
[2018-09-02] MEDS: CLONIDINE 0.1MG TABLET PO SCH ×3 (06:19→21:13)
[2018-09-02] MEDS: BLOOD SUGAR DIAGNOSTIC STRIP TEST SCH ×4 (06:21→21:22)
[2018-09-02] MEDS: INSULIN LISPRO 100 UNITS/ML SUBCUT SCH ×4 (06:54→21:56)
[2018-09-02 07:17] LABS: BASOPHILS % 1.3 % (0.0-2.0); EOSINOPHILS % 1.3 % (0.0-5.0); HEMATOCRIT. 26.8 % (36.0-48.0); HEMOGLOBIN. 8.4 g/dL (12.0-16.0); LYMPHOCYTES % 25.9 % (20.0-50.0); MEAN CORPUSCULAR HEMOGLOBIN 25.8 pg (28.0-32.0); MEAN CORPUSCULAR VOLUME 81.8 fL (81.0-99.0); MONOCYTES % 6.1 % (2.0-8.0); NEUTROPHILS % 65.4 % (40.0-76.0); PLATELET 467 x1000/uL (130-400); RED BLOOD CELL COUNT 3.27 mill/uL (4.2-5.4)
[2018-09-02 08:00] VITALS: BP 131/71
[2018-09-02 08:05] LABS: CHLORIDE 100 mEq/L (98-107)
[2018-09-02] MEDS: LISINOPRIL 20MG TABLET PO SCH ×2 (09:00→21:13)
[2018-09-02] MEDS: AMLODIPINE 10MG TABLET PO SCH (09:00)
[2018-09-02] MEDS: ATENOLOL 50 MG TABLET PO SCH ×2 (09:00→21:14)
[2018-09-02] MEDS: BISACODYL 10MG SUPP PR SCH (09:00)
[2018-09-02] MEDS: ASPIRIN 81MG TABLET PO SCH (09:38)
[2018-09-02] MEDS: FAMOTIDINE 20MG/2ML VIAL IV SCH ×2 (09:38→21:13)
[2018-09-02] MEDS: PREGABALIN 75MG CAPSULE PO SCH ×2 (09:38→17:29)
[2018-09-02] MEDS: DULOXETINE HCL 60MG DR CAPSULE PO SCH (09:38)
[2018-09-02] MEDS: DOCUSATE SODIUM 100MG CAPSULE PO SCH ×2 (09:39→17:28)
[2018-09-02] MEDS: BUSPIRONE HCL 5MG TABLET PO SCH ×2 (09:39→21:14)
[2018-09-02 20:00] VITALS: BP 126/72
[2018-09-02] MEDS: DIPHENHYDRAMINE 50MG/ML VIAL IV PRN (20:11)
[2018-09-02] MEDS: POLYETHYLENE GLYCOL 3350 (17GM) 1 DOSE PACK PO SCH (21:00)
[2018-09-02 21:47] LABS: CLARITY URINE CLOUDY (CLEAR); COLOR URINE YELLOW (YELLOW); KETONES URINE NEGATIVE (NEGATIVE); LEUKOCYTE ESTERASE URINE 2+ (NEGATIVE); NITRITE URINE NEGATIVE (NEGATIVE); OCCULT BLOOD URINE NEGATIVE (NEGATIVE); PROTEIN URINE NEGATIVE (NEGATIVE); SPECIFIC GRAVITY URINE 1.016 (1.005-1.030)
[2018-09-02] MEDS: INSULIN GLARGINE UD 100 UNITS/ML SYR SUBCUT SCH (21:57)
[2018-09-03] MEDS: MORPHINE SULFATE 4 MG/ML CPJ (NOT FOR IM USE) IV PRN ×4 (02:15→19:41)
[2018-09-03] MEDS: IPRATROPIUM/ALBUTEROL 0.5-3(2.5)MG/3ML NEB HHN SCH ×4 (02:36→20:55)
[2018-09-03] MEDS: IRON SUCROSE COMPLEX 100 MG in SODIUM CHLORIDE 0.9% 100 ML IV SCH (05:02)
[2018-09-03] MEDS: CLONIDINE 0.1MG TABLET PO SCH ×3 (05:02→21:36)
[2018-09-03] MEDS: HYDROCODONE/ACETAMINOPHEN 10/325MG TABLET PO PRN ×4 (05:03→23:12)
[2018-09-03 06:18] LABS: BASOPHILS % 1.1 % (0.0-2.0); EOSINOPHILS % 2.5 % (0.0-5.0); HEMATOCRIT. 25.5 % (36.0-48.0); HEMOGLOBIN. 8.2 g/dL (12.0-16.0); MEAN CORPUSCULAR HEMOGLOBIN 26.3 pg (28.0-32.0); MEAN CORPUSCULAR VOLUME 81.6 fL (81.0-99.0); MEAN PLATELET VOLUME 7.8 fl (7.4-10.4); MONOCYTES % 7.2 % (2.0-8.0); NEUTROPHILS % 60.2 % (40.0-76.0); PLATELET 440 x1000/uL (130-400); RED BLOOD CELL COUNT 3.13 mill/uL (4.2-5.4); RED CELL DISTRIBUTION WIDTH 17.3 % (11.6-14.6)
[2018-09-03] MEDS: BLOOD SUGAR DIAGNOSTIC STRIP TEST SCH ×4 (06:41→20:50)
[2018-09-03] MEDS: INSULIN LISPRO 100 UNITS/ML SUBCUT SCH ×4 (06:45→21:37)
[2018-09-03 07:36] LABS: CHLORIDE 104 mEq/L (98-107); PHOSPHORUS 3.3 mg/dL (2.5-4.9)
[2018-09-03 08:12] VITALS: BP 135/69
[2018-09-03] MEDS: PREGABALIN 75MG CAPSULE PO SCH ×2 (08:32→17:22)
[2018-09-03] MEDS: ASPIRIN 81MG TABLET PO SCH (08:32)
[2018-09-03] MEDS: FAMOTIDINE 20MG/2ML VIAL IV SCH ×2 (08:32→20:47)
[2018-09-03] MEDS: BUSPIRONE HCL 5MG TABLET PO SCH ×2 (08:32→20:48)
[2018-09-03] MEDS: DOCUSATE SODIUM 100MG CAPSULE PO SCH ×2 (08:32→17:28)
[2018-09-03] MEDS: BISACODYL 10MG SUPP PR SCH (08:32)
[2018-09-03] MEDS: DULOXETINE HCL 60MG DR CAPSULE PO SCH (08:32)
[2018-09-03] MEDS: ATENOLOL 50 MG TABLET PO SCH ×3 (08:33→20:49)
[2018-09-03] MEDS: AMLODIPINE 10MG TABLET PO SCH (08:35)
[2018-09-03] MEDS: LISINOPRIL 20MG TABLET PO SCH ×2 (08:36→20:49)
[2018-09-03] MEDS ORDERED: MAGNESIUM 1 G PREMIX 100 ML IV SCH (09:30)
[2018-09-03] MEDS ORDERED: HYDROCODONE/ACETAMINOPHEN 5/325MG TABLET PO PRN (12:00)
[2018-09-03] MEDS: DIPHENHYDRAMINE 50MG/ML VIAL IV PRN (19:47)
[2018-09-03 20:00] VITALS: BP 132/65
[2018-09-03] MEDS: POLYETHYLENE GLYCOL 3350 (17GM) 1 DOSE PACK PO SCH ×2 (20:48→21:00)
[2018-09-03] MEDS: INSULIN GLARGINE UD 100 UNITS/ML SYR SUBCUT SCH (21:37)
[2018-09-04] MEDS ORDERED: LORAZEPAM 2MG/ML CPJ IV PRN (00:30)
[2018-09-04] MEDS: IPRATROPIUM/ALBUTEROL 0.5-3(2.5)MG/3ML NEB HHN SCH ×4 (01:10→21:07)
[2018-09-04] MEDS: IRON SUCROSE COMPLEX 100 MG in SODIUM CHLORIDE 0.9% 100 ML IV SCH (04:46)
[2018-09-04] MEDS: MORPHINE SULFATE 4 MG/ML CPJ (NOT FOR IM USE) IV PRN ×3 (04:47→13:53)
[2018-09-04 06:40] LABS: BASOPHILS % 1.4 % (0.0-2.0); EOSINOPHILS % 2.6 % (0.0-5.0); HEMATOCRIT. 25.3 % (36.0-48.0); HEMOGLOBIN. 8.1 g/dL (12.0-16.0); LYMPHOCYTES % 23.9 % (20.0-50.0); MEAN CORPUSCULAR HEMOGLOBIN 26.1 pg (28.0-32.0); MEAN CORPUSCULAR VOLUME 82.1 fL (81.0-99.0); MEAN PLATELET VOLUME 7.9 fl (7.4-10.4); MONOCYTES % 5.4 % (2.0-8.0); NEUTROPHILS % 66.7 % (40.0-76.0); PLATELET 431 x1000/uL (130-400); RED BLOOD CELL COUNT 3.09 mill/uL (4.2-5.4); RED CELL DISTRIBUTION WIDTH 17.7 % (11.6-14.6)
[2018-09-04] MEDS: CLONIDINE 0.1MG TABLET PO SCH ×3 (06:44→22:00)
[2018-09-04] MEDS: BLOOD SUGAR DIAGNOSTIC STRIP TEST SCH ×4 (06:44→21:00)
[2018-09-04] MEDS: INSULIN LISPRO 100 UNITS/ML SUBCUT SCH ×4 (06:49→23:07)
[2018-09-04] MEDS: HYDROCODONE/ACETAMINOPHEN 10/325MG TABLET PO PRN ×4 (06:49→20:32)
[2018-09-04 07:54] LABS: CHLORIDE 101 mEq/L (98-107)
[2018-09-04 07:58] LABS: PHOSPHORUS 4.2 mg/dL (2.5-4.9)
[2018-09-04 08:10] VITALS: BP 128/66
[2018-09-04] MEDS: DULOXETINE HCL 60MG DR CAPSULE PO SCH (08:45)
[2018-09-04] MEDS: PREGABALIN 75MG CAPSULE PO SCH ×2 (08:45→18:02)
[2018-09-04] MEDS: FAMOTIDINE 20MG/2ML VIAL IV SCH ×2 (08:45→20:32)
[2018-09-04] MEDS: BISACODYL 10MG SUPP PR SCH (08:46)
[2018-09-04] MEDS: AMLODIPINE 10MG TABLET PO SCH (08:46)
[2018-09-04] MEDS: ASPIRIN 81MG TABLET PO SCH (08:46)
[2018-09-04] MEDS: DOCUSATE SODIUM 100MG CAPSULE PO SCH ×2 (08:46→18:01)
[2018-09-04] MEDS: BUSPIRONE HCL 5MG TABLET PO SCH ×2 (08:46→20:32)
[2018-09-04] MEDS: LISINOPRIL 20MG TABLET PO SCH ×2 (08:47→21:00)
[2018-09-04] MEDS: ATENOLOL 50 MG TABLET PO SCH ×2 (08:47→20:33)
[2018-09-04] MEDS ORDERED: LEVOFLOXACIN 500MG TABLET PO NR (13:15)
[2018-09-04] MEDS: AMOXICILLIN 500 MG CAPSULE PO SCH ×2 (16:09→20:31)
[2018-09-04] MEDS: LORAZEPAM 2MG/ML CPJ IV PRN (16:51)
[2018-09-04 20:00] VITALS: BP 116/62
[2018-09-04 20:06] LABS: CLARITY URINE CLEAR (CLEAR); COLOR URINE YELLOW (YELLOW); KETONES URINE NEGATIVE (NEGATIVE); LEUKOCYTE ESTERASE URINE NEGATIVE (NEGATIVE); NITRITE URINE NEGATIVE (NEGATIVE); OCCULT BLOOD URINE NEGATIVE (NEGATIVE); PH URINE 6.5 (4.5-8.0); PROTEIN URINE NEGATIVE (NEGATIVE); SPECIFIC GRAVITY URINE 1.017 (1.005-1.030)
[2018-09-04] MEDS: POLYETHYLENE GLYCOL 3350 (17GM) 1 DOSE PACK PO SCH (20:32)
[2018-09-04] MEDS: INSULIN GLARGINE UD 100 UNITS/ML SYR SUBCUT SCH (23:06)
[2018-09-05] MEDS: HYDROCODONE/ACETAMINOPHEN 10/325MG TABLET PO PRN ×3 (00:34→17:02)
[2018-09-05] MEDS: IPRATROPIUM/ALBUTEROL 0.5-3(2.5)MG/3ML NEB HHN SCH ×4 (01:57→21:10)
[2018-09-05] MEDS: LORAZEPAM 2MG/ML CPJ IV PRN ×2 (02:32→21:50)
[2018-09-05] MEDS: IRON SUCROSE COMPLEX 100 MG in SODIUM CHLORIDE 0.9% 100 ML IV SCH (05:07)
[2018-09-05] MEDS: MORPHINE SULFATE 4 MG/ML CPJ (NOT FOR IM USE) IV PRN ×3 (05:15→20:05)
[2018-09-05] MEDS: CLONIDINE 0.1MG TABLET PO SCH ×3 (06:00→22:00)
[2018-09-05] MEDS: BLOOD SUGAR DIAGNOSTIC STRIP TEST SCH ×4 (06:09→21:29)
[2018-09-05] MEDS: AMOXICILLIN 500 MG CAPSULE PO SCH ×3 (06:10→22:04)
[2018-09-05 06:42] LABS: BASOPHILS % 0.2 % (0.0-2.0); EOSINOPHILS % 2.8 % (0.0-5.0); HEMATOCRIT. 25.2 % (36.0-48.0); HEMOGLOBIN. 8.2 g/dL (12.0-16.0); LYMPHOCYTES % 23.5 % (20.0-50.0); MEAN CORPUSCULAR HEMOGLOBIN 26.5 pg (28.0-32.0); MEAN CORPUSCULAR VOLUME 81.8 fL (81.0-99.0); NEUTROPHILS % 67.5 % (40.0-76.0); PLATELET 458 x1000/uL (130-400); RED BLOOD CELL COUNT 3.08 mill/uL (4.2-5.4); RED CELL DISTRIBUTION WIDTH 17.8 % (11.6-14.6)
[2018-09-05] MEDS: INSULIN LISPRO 100 UNITS/ML SUBCUT SCH ×3 (06:55→17:00)
[2018-09-05 07:11] LABS: CHLORIDE 103 mEq/L (98-107)
[2018-09-05 08:00] VITALS: BP 139/80
[2018-09-05] MEDS: FAMOTIDINE 20MG/2ML VIAL IV SCH ×2 (08:11→21:27)
[2018-09-05] MEDS: DIPHENHYDRAMINE 50MG/ML VIAL IV PRN (08:11)
[2018-09-05] MEDS: PREGABALIN 75MG CAPSULE PO SCH ×3 (08:12→17:01)
[2018-09-05] MEDS: BUSPIRONE HCL 5MG TABLET PO SCH ×2 (08:12→21:27)
[2018-09-05] MEDS: ATENOLOL 50 MG TABLET PO SCH ×2 (08:12→21:00)
[2018-09-05] MEDS: AMLODIPINE 10MG TABLET PO SCH (08:12)
[2018-09-05] MEDS: LISINOPRIL 20MG TABLET PO SCH ×2 (08:12→21:00)
[2018-09-05] MEDS: DULOXETINE HCL 60MG DR CAPSULE PO SCH (08:12)
[2018-09-05] MEDS: DOCUSATE SODIUM 100MG CAPSULE PO SCH ×2 (08:13→17:01)
[2018-09-05] MEDS: ASPIRIN 81MG TABLET PO SCH (08:13)
[2018-09-05] MEDS ORDERED: INSULIN GLARGINE UD 100 UNITS/ML SYR SUBCUT SCH (09:00)
[2018-09-05] MEDS: BISACODYL 10MG SUPP PR SCH (09:00)
[2018-09-05] MEDS: LEVOFLOXACIN 250MG TABLET PO SCH (11:19)
[2018-09-05] MEDS: INSULIN LISPRO (LOW DOSE) 100 UNITS/ML SUBCUT SCH ×2 (12:15→17:00)
[2018-09-05] MEDS ORDERED: INSULIN LISPRO 100 UNITS/ML SUBCUT SCH (13:00)
[2018-09-05] MEDS ORDERED: BISACODYL 10MG SUPP PR NR (14:45)
[2018-09-05 19:11] LABS: 25-HYDROXY VITAMIN D3 8.2 ng/mL (.)
[2018-09-05 20:00] VITALS: BP 118/6
[2018-09-05] MEDS: POLYETHYLENE GLYCOL 3350 (17GM) 1 DOSE PACK PO SCH (21:34)
[2018-09-05] MEDS: INSULIN GLARGINE UD 100 UNITS/ML SYR SUBCUT SCH (22:05)
[2018-09-06] MEDS: IPRATROPIUM/ALBUTEROL 0.5-3(2.5)MG/3ML NEB HHN SCH ×4 (01:05→19:52)
[2018-09-06] MEDS: HYDROCODONE/ACETAMINOPHEN 10/325MG TABLET PO PRN ×3 (01:07→19:58)
[2018-09-06] MEDS: MORPHINE SULFATE 4 MG/ML CPJ (NOT FOR IM USE) IV PRN ×5 (03:48→22:46)
[2018-09-06] MEDS: IRON SUCROSE COMPLEX 100 MG in SODIUM CHLORIDE 0.9% 100 ML IV SCH (05:14)
[2018-09-06] MEDS: CLONIDINE 0.1MG TABLET PO SCH ×3 (06:33→21:46)
[2018-09-06] MEDS: AMOXICILLIN 500 MG CAPSULE PO SCH ×3 (06:33→21:46)
[2018-09-06] MEDS: BLOOD SUGAR DIAGNOSTIC STRIP TEST SCH ×4 (06:34→21:38)
[2018-09-06] MEDS: INSULIN LISPRO 100 UNITS/ML SUBCUT SCH ×3 (06:44→17:26)
[2018-09-06] MEDS: INSULIN LISPRO (LOW DOSE) 100 UNITS/ML SUBCUT SCH ×3 (06:46→17:25)
[2018-09-06] MEDS ORDERED: LORAZEPAM 2MG/ML CPJ IV PRN (08:00)
[2018-09-06 08:03] VITALS: BP 118/65
[2018-09-06] MEDS: PREGABALIN 75MG CAPSULE PO SCH ×3 (08:20→16:45)
[2018-09-06] MEDS: BUSPIRONE HCL 5MG TABLET PO SCH ×2 (08:21→20:16)
[2018-09-06] MEDS: ASPIRIN 81MG TABLET PO SCH (08:21)
[2018-09-06] MEDS: ATENOLOL 50 MG TABLET PO SCH ×2 (08:21→20:16)
[2018-09-06] MEDS: AMLODIPINE 10MG TABLET PO SCH (08:21)
[2018-09-06] MEDS: FAMOTIDINE 20MG/2ML VIAL IV SCH ×2 (08:22→20:16)
[2018-09-06] MEDS: DULOXETINE HCL 60MG DR CAPSULE PO SCH (08:22)
[2018-09-06] MEDS: DOCUSATE SODIUM 100MG CAPSULE PO SCH ×2 (08:22→16:44)
[2018-09-06] MEDS: LISINOPRIL 20MG TABLET PO SCH ×2 (08:22→20:16)
[2018-09-06] MEDS ORDERED: HYDROCODONE/ACETAMINOPHEN 10/325MG TABLET PO PRN (09:00)
[2018-09-06] MEDS ORDERED: BISACODYL 10MG SUPP PR SCH (09:00)
[2018-09-06] MEDS: BISACODYL 10MG SUPP PR SCH (09:00)
[2018-09-06] MEDS: LEVOFLOXACIN 250MG TABLET PO SCH (11:31)
[2018-09-06] MEDS: DIPHENHYDRAMINE 50MG/ML VIAL IV PRN (12:02)
[2018-09-06] MEDS: LINAGLIPTIN 5MG TABLET PO SCH (14:16)
[2018-09-06] MEDS: PHENAZOPYRIDINE HCL 100MG TABLET PO SCH (16:45)
[2018-09-06] MEDS ORDERED: ERGOCALCIFEROL 50000UNITS CAPSULE PO SCH (18:00)
[2018-09-06 20:00] VITALS: BP 109/61
[2018-09-06] MEDS: POLYETHYLENE GLYCOL 3350 (17GM) 1 DOSE PACK PO SCH (20:16)
[2018-09-06] MEDS ORDERED: INSULIN GLARGINE UD 100 UNITS/ML SYR SUBCUT SCH (22:00)
[2018-09-07] MEDS: IPRATROPIUM/ALBUTEROL 0.5-3(2.5)MG/3ML NEB HHN SCH ×3 (00:26→22:01)
[2018-09-07] MEDS: HYDROCODONE/ACETAMINOPHEN 10/325MG TABLET PO PRN ×4 (04:46→19:52)
[2018-09-07] MEDS: CLONIDINE 0.1MG TABLET PO SCH ×3 (05:11→21:52)
[2018-09-07] MEDS: AMOXICILLIN 500 MG CAPSULE PO SCH ×3 (05:11→21:51)
[2018-09-07] MEDS: BLOOD SUGAR DIAGNOSTIC STRIP TEST SCH ×4 (06:42→21:41)
[2018-09-07] MEDS: INSULIN LISPRO (LOW DOSE) 100 UNITS/ML SUBCUT SCH ×3 (06:49→17:18)
[2018-09-07] MEDS: INSULIN LISPRO 100 UNITS/ML SUBCUT SCH ×3 (06:49→17:18)
[2018-09-07 08:00] VITALS: BP 131/71
[2018-09-07] MEDS: PREGABALIN 75MG CAPSULE PO SCH ×3 (08:03→16:05)
[2018-09-07] MEDS: DOCUSATE SODIUM 100MG CAPSULE PO SCH ×2 (08:03→16:05)
[2018-09-07] MEDS: DULOXETINE HCL 60MG DR CAPSULE PO SCH (08:03)
[2018-09-07] MEDS: ASPIRIN 81MG TABLET PO SCH (08:03)
[2018-09-07] MEDS: LINAGLIPTIN 5MG TABLET PO SCH (08:04)
[2018-09-07] MEDS: AMLODIPINE 10MG TABLET PO SCH (08:04)
[2018-09-07] MEDS: ATENOLOL 50 MG TABLET PO SCH ×2 (08:04→20:28)
[2018-09-07] MEDS: FAMOTIDINE 20MG/2ML VIAL IV SCH ×2 (08:04→20:28)
[2018-09-07] MEDS: PHENAZOPYRIDINE HCL 100MG TABLET PO SCH ×3 (08:04→16:05)
[2018-09-07] MEDS: BUSPIRONE HCL 5MG TABLET PO SCH ×2 (08:04→20:28)
[2018-09-07] MEDS: LISINOPRIL 20MG TABLET PO SCH ×2 (08:04→20:28)
[2018-09-07] MEDS: MORPHINE SULFATE 4 MG/ML CPJ (NOT FOR IM USE) IV PRN ×4 (08:05→21:52)
[2018-09-07] MEDS: BISACODYL 10MG SUPP PR SCH (09:00)
[2018-09-07] MEDS: LACTOBACILLUS GG CAPSULE PO SCH (14:30)
[2018-09-07 20:00] VITALS: BP 125/66
[2018-09-07] MEDS: POLYETHYLENE GLYCOL 3350 (17GM) 1 DOSE PACK PO SCH (20:28)
[2018-09-07] MEDS ORDERED: INSULIN GLARGINE UD 100 UNITS/ML SYR SUBCUT SCH (22:00)
[2018-09-07] MEDS: LORAZEPAM 2MG/ML CPJ IV PRN (23:14)
[2018-09-08] MEDS: MORPHINE SULFATE 4 MG/ML CPJ (NOT FOR IM USE) IV PRN ×4 (03:55→22:55)
[2018-09-08] MEDS: CLONIDINE 0.1MG TABLET PO SCH ×3 (06:31→21:48)
[2018-09-08] MEDS: HYDROCODONE/ACETAMINOPHEN 10/325MG TABLET PO PRN ×2 (06:32→12:10)
[2018-09-08] MEDS: BLOOD SUGAR DIAGNOSTIC STRIP TEST SCH ×4 (06:32→21:48)
[2018-09-08] MEDS: INSULIN LISPRO 100 UNITS/ML SUBCUT SCH ×3 (06:37→16:27)
[2018-09-08] MEDS: INSULIN LISPRO (LOW DOSE) 100 UNITS/ML SUBCUT SCH ×3 (06:38→16:32)
[2018-09-08 07:05] LABS: BASOPHILS % 1.4 % (0.0-2.0); HEMATOCRIT. 27.7 % (36.0-48.0); HEMOGLOBIN. 8.8 g/dL (12.0-16.0); LYMPHOCYTES % 28.7 % (20.0-50.0); MEAN CORPUSCULAR HEMOGLOBIN 26.8 pg (28.0-32.0); MEAN CORPUSCULAR VOLUME 84.6 fL (81.0-99.0); MEAN PLATELET VOLUME 7.6 fl (7.4-10.4); MONOCYTES % 8.7 % (2.0-8.0); NEUTROPHILS % 57.2 % (40.0-76.0); PLATELET 428 x1000/uL (130-400); RED BLOOD CELL COUNT 3.28 mill/uL (4.2-5.4); RED CELL DISTRIBUTION WIDTH 19.9 % (11.6-14.6)
[2018-09-08] MEDS: IPRATROPIUM/ALBUTEROL 0.5-3(2.5)MG/3ML NEB HHN SCH ×4 (07:33→20:52)
[2018-09-08 07:49] LABS: CHLORIDE 103 mEq/L (98-107)
[2018-09-08 07:56] LABS: PHOSPHORUS 3.8 mg/dL (2.5-4.9)
[2018-09-08 08:24] VITALS: BP 132/61
[2018-09-08] MEDS: BISACODYL 10MG SUPP PR SCH (09:00)
[2018-09-08] MEDS ORDERED: MAGNESIUM SULFATE 2 GM in DEXTROSE 5% WATER 50 ML IV NR (09:00)
[2018-09-08] MEDS: ATENOLOL 50 MG TABLET PO SCH ×2 (09:00→21:48)
[2018-09-08] MEDS: FAMOTIDINE 20MG/2ML VIAL IV SCH ×2 (09:28→21:46)
[2018-09-08] MEDS: AMLODIPINE 10MG TABLET PO SCH (09:28)
[2018-09-08] MEDS: LACTULOSE 20G/30ML UDC PO PRN (09:28)
[2018-09-08] MEDS: LACTOBACILLUS GG CAPSULE PO SCH (09:29)
[2018-09-08] MEDS: PREGABALIN 75MG CAPSULE PO SCH ×3 (09:29→16:18)
[2018-09-08] MEDS: PHENAZOPYRIDINE HCL 100MG TABLET PO SCH ×3 (09:30→16:18)
[2018-09-08] MEDS: BUSPIRONE HCL 5MG TABLET PO SCH ×2 (09:30→21:46)
[2018-09-08] MEDS: ASPIRIN 81MG TABLET PO SCH (09:30)
[2018-09-08] MEDS: DOCUSATE SODIUM 100MG CAPSULE PO SCH ×2 (09:30→16:18)
[2018-09-08] MEDS: DULOXETINE HCL 60MG DR CAPSULE PO SCH (09:30)
[2018-09-08] MEDS: LISINOPRIL 20MG TABLET PO SCH ×2 (09:31→21:48)
[2018-09-08] MEDS: VICTOZA SQ SCH ×2 (10:30→12:11)
[2018-09-08 20:00] VITALS: BP 129/66
[2018-09-08] MEDS: POLYETHYLENE GLYCOL 3350 (17GM) 1 DOSE PACK PO SCH ×2 (21:00→21:46)
[2018-09-08] MEDS: MAGNESIUM OXIDE 400MG TABLET PO SCH (21:51)
[2018-09-08] MEDS ORDERED: INSULIN GLARGINE UD 100 UNITS/ML SYR SUBCUT SCH (22:00)
[2018-09-09] MEDS: LORAZEPAM 2MG/ML CPJ IV PRN (00:35)
[2018-09-09] MEDS: IPRATROPIUM/ALBUTEROL 0.5-3(2.5)MG/3ML NEB HHN SCH ×4 (02:25→21:52)
[2018-09-09] MEDS: HYDROCODONE/ACETAMINOPHEN 10/325MG TABLET PO PRN ×4 (03:51→21:22)
[2018-09-09] MEDS: CLONIDINE 0.1MG TABLET PO SCH ×3 (06:00→21:23)
[2018-09-09] MEDS: BLOOD SUGAR DIAGNOSTIC STRIP TEST SCH ×4 (07:12→21:22)
[2018-09-09] MEDS: MAGNESIUM OXIDE 400MG TABLET PO SCH ×2 (07:17→17:15)
[2018-09-09] MEDS: INSULIN LISPRO 100 UNITS/ML SUBCUT SCH ×3 (07:17→17:56)
[2018-09-09] MEDS: MORPHINE SULFATE 4 MG/ML CPJ (NOT FOR IM USE) IV PRN (07:18)
[2018-09-09] MEDS: INSULIN LISPRO (LOW DOSE) 100 UNITS/ML SUBCUT SCH ×3 (07:20→17:55)
[2018-09-09 08:00] VITALS: BP 127/68
[2018-09-09] MEDS: BISACODYL 10MG SUPP PR SCH (09:00)
[2018-09-09] MEDS: DOCUSATE SODIUM 100MG CAPSULE PO SCH ×2 (09:04→17:15)
[2018-09-09] MEDS: LACTOBACILLUS GG CAPSULE PO SCH (09:04)
[2018-09-09] MEDS: FAMOTIDINE 20MG/2ML VIAL IV SCH (09:04)
[2018-09-09] MEDS: DULOXETINE HCL 60MG DR CAPSULE PO SCH (09:04)
[2018-09-09] MEDS: PREGABALIN 75MG CAPSULE PO SCH ×3 (09:05→17:15)
[2018-09-09] MEDS: ASPIRIN 81MG TABLET PO SCH (09:05)
[2018-09-09] MEDS: BUSPIRONE HCL 5MG TABLET PO SCH ×2 (09:05→21:21)
[2018-09-09] MEDS: VICTOZA SQ SCH ×2 (09:06→09:53)
[2018-09-09] MEDS: ATENOLOL 50 MG TABLET PO SCH ×2 (09:09→21:21)
[2018-09-09] MEDS: AMLODIPINE 10MG TABLET PO SCH (09:09)
[2018-09-09] MEDS: LISINOPRIL 20MG TABLET PO SCH ×2 (09:10→21:00)
[2018-09-09 09:50] VITALS: BP 157/81
[2018-09-09] MEDS: LORAZEPAM 0.5MG TABLET PO PRN ×2 (10:42→16:22)
[2018-09-09] MEDS: FUROSEMIDE 40MG TABLET PO SCH (10:42)
[2018-09-09] MEDS ORDERED: MORPHINE SULFATE 4 MG/ML CPJ (NOT FOR IM USE) IV PRN (11:15)
[2018-09-09 16:00] VITALS: BP 144/74
[2018-09-09 20:00] VITALS: BP 129/70
[2018-09-09] MEDS: FAMOTIDINE 20MG TABLET PO SCH (21:21)
[2018-09-09] MEDS: POLYETHYLENE GLYCOL 3350 (17GM) 1 DOSE PACK PO SCH (21:21)
[2018-09-09] MEDS: INSULIN GLARGINE UD 100 UNITS/ML SYR SUBCUT SCH (21:40)
[2018-09-10] MEDS: LORAZEPAM 0.5MG TABLET PO PRN ×2 (00:01→23:27)
[2018-09-10] MEDS: IPRATROPIUM/ALBUTEROL 0.5-3(2.5)MG/3ML NEB HHN SCH ×4 (01:31→20:50)
[2018-09-10] MEDS: HYDROCODONE/ACETAMINOPHEN 10/325MG TABLET PO PRN ×4 (05:14→20:40)
[2018-09-10] MEDS: CLONIDINE 0.1MG TABLET PO SCH ×3 (06:00→22:00)
[2018-09-10] MEDS: BLOOD SUGAR DIAGNOSTIC STRIP TEST SCH ×4 (06:16→21:59)
[2018-09-10] MEDS: INSULIN LISPRO (LOW DOSE) 100 UNITS/ML SUBCUT SCH ×3 (06:17→17:00)
[2018-09-10] MEDS: MAGNESIUM OXIDE 400MG TABLET PO SCH ×2 (06:46→12:22)
[2018-09-10] MEDS: INSULIN LISPRO 100 UNITS/ML SUBCUT SCH ×3 (06:47→17:41)
[2018-09-10 07:37] LABS: EOSINOPHILS % 3.5 % (0.0-5.0); HEMATOCRIT. 30.5 % (36.0-48.0); HEMOGLOBIN. 9.6 g/dL (12.0-16.0); LYMPHOCYTES % 32.3 % (20.0-50.0); MEAN CORPUSCULAR HEMOGLOBIN 26.6 pg (28.0-32.0); MEAN CORPUSCULAR VOLUME 84.5 fL (81.0-99.0); MEAN PLATELET VOLUME 7.5 fl (7.4-10.4); MONOCYTES % 9.4 % (2.0-8.0); NEUTROPHILS % 53.8 % (40.0-76.0); PLATELET 453 x1000/uL (130-400); RED BLOOD CELL COUNT 3.61 mill/uL (4.2-5.4); RED CELL DISTRIBUTION WIDTH 22.6 % (11.6-14.6)
[2018-09-10 07:53] LABS: CHLORIDE 101 mEq/L (98-107)
[2018-09-10 08:00] VITALS: BP 129/69
[2018-09-10 08:01] LABS: PHOSPHORUS 4.4 mg/dL (2.5-4.9)
[2018-09-10] MEDS: BISACODYL 10MG SUPP PR SCH (09:00)
[2018-09-10] MEDS: LACTOBACILLUS GG CAPSULE PO SCH (09:07)
[2018-09-10] MEDS: DULOXETINE HCL 60MG DR CAPSULE PO SCH (09:07)
[2018-09-10] MEDS: ATENOLOL 50 MG TABLET PO SCH ×2 (09:07→22:04)
[2018-09-10] MEDS: ASPIRIN 81MG TABLET PO SCH (09:08)
[2018-09-10] MEDS: FUROSEMIDE 40MG TABLET PO SCH (09:08)
[2018-09-10] MEDS: FAMOTIDINE 20MG TABLET PO SCH ×2 (09:08→22:04)
[2018-09-10] MEDS: DOCUSATE SODIUM 100MG CAPSULE PO SCH ×2 (09:08→17:38)
[2018-09-10] MEDS: LISINOPRIL 20MG TABLET PO SCH ×2 (09:08→22:04)
[2018-09-10] MEDS: AMLODIPINE 10MG TABLET PO SCH (09:08)
[2018-09-10] MEDS: PREGABALIN 75MG CAPSULE PO SCH ×3 (09:08→17:38)
[2018-09-10] MEDS: VICTOZA SQ SCH (09:12)
[2018-09-10] MEDS ORDERED: MAGNESIUM SULFATE 2 GM in DEXTROSE 5% WATER 50 ML IV NR (12:00)
[2018-09-10 12:55] LABS: PLATELET ESTIMATE SLIGHTLY INCREASED
[2018-09-10 20:00] VITALS: BP 142/73
[2018-09-10] MEDS: POLYETHYLENE GLYCOL 3350 (17GM) 1 DOSE PACK PO SCH (22:05)
[2018-09-10] MEDS: INSULIN GLARGINE UD 100 UNITS/ML SYR SUBCUT SCH (22:06)
[2018-09-11] MEDS: IPRATROPIUM/ALBUTEROL 0.5-3(2.5)MG/3ML NEB HHN SCH ×2 (01:00→08:10)
[2018-09-11] MEDS: HYDROCODONE/ACETAMINOPHEN 10/325MG TABLET PO PRN ×2 (03:18→09:05)
[2018-09-11] MEDS: BLOOD SUGAR DIAGNOSTIC STRIP TEST SCH ×2 (05:48→11:15)
[2018-09-11] MEDS: CLONIDINE 0.1MG TABLET PO SCH ×2 (06:27→13:02)
[2018-09-11] MEDS: INSULIN LISPRO (LOW DOSE) 100 UNITS/ML SUBCUT SCH ×2 (06:28→13:05)
[2018-09-11] MEDS: INSULIN LISPRO 100 UNITS/ML SUBCUT SCH ×2 (06:28→13:04)
[2018-09-11 08:00] VITALS: BP 144/76
[2018-09-11] MEDS: BISACODYL 10MG SUPP PR SCH (09:00)
[2018-09-11] MEDS: DULOXETINE HCL 60MG DR CAPSULE PO SCH (09:03)
[2018-09-11] MEDS: ASPIRIN 81MG TABLET PO SCH (09:03)
[2018-09-11] MEDS: PREGABALIN 75MG CAPSULE PO SCH ×2 (09:03→12:59)
[2018-09-11] MEDS: MAGNESIUM OXIDE 400MG TABLET PO SCH (09:04)
[2018-09-11] MEDS: DOCUSATE SODIUM 100MG CAPSULE PO SCH (09:04)
[2018-09-11] MEDS: FAMOTIDINE 20MG TABLET PO SCH (09:04)
[2018-09-11] MEDS: FUROSEMIDE 40MG TABLET PO SCH (09:04)
[2018-09-11] MEDS: ATENOLOL 50 MG TABLET PO SCH (09:04)
[2018-09-11] MEDS: LISINOPRIL 20MG TABLET PO SCH (09:04)
[2018-09-11] MEDS: LACTOBACILLUS GG CAPSULE PO SCH (09:04)
[2018-09-11] MEDS: AMLODIPINE 10MG TABLET PO SCH (09:05)
[2018-09-11] MEDS: VICTOZA SQ SCH (09:06)
[2018-09-11] MEDS: LORAZEPAM 0.5MG TABLET PO PRN (12:11)
[2018-09-11 14:08] VITALS: BP 146/84
== END 2018-09-11 15:25 | disposition home health service (06) | DRG 551 ==
PROVIDERS: ADMIT Physical Medicine & Rehabilitation Spinal Cord Injury Medicine; ATTEND Internal Medicine Nephrology
DX: M48.02 Spinal stenosis, cervical region (principal); G82.50 Quadriplegia, unspecified; M47.12 Other spondylosis with myelopathy, cervical region; E46 Unspecified protein-calorie malnutrition; G95.29 Other cord compression; N39.0 Urinary tract infection, site not specified; R13.10 Dysphagia, unspecified; R53.81 Other malaise; G89.4 Chronic pain syndrome; R26.9 Unspecified abnormalities of gait and mobility; D72.829 Elevated white blood cell count, unspecified; D64.9 Anemia, unspecified; I10 Essential (primary) hypertension; E78.5 Hyperlipidemia, unspecified; I25.10 Atherosclerotic heart disease of native coronary artery without angina pectoris; E66.01 Morbid (severe) obesity due to excess calories; T38.0X5A Adverse effect of glucocorticoids and synthetic analogues, initial encounter; Z86.73 Personal history of transient ischemic attack (TIA), and cerebral infarction without residual deficits; M79.7 Fibromyalgia; F20.9 Schizophrenia, unspecified; E78.00 Pure hypercholesterolemia, unspecified; K59.00 Constipation, unspecified; Z98.1 Arthrodesis status; Z79.899 Other long term (current) drug therapy; Z79.82 Long term (current) use of aspirin; Z79.4 Long term (current) use of insulin; B95.2 Enterococcus as the cause of diseases classified elsewhere; F17.210 Nicotine dependence, cigarettes, uncomplicated; E11.65 Type 2 diabetes mellitus with hyperglycemia; D50.9 Iron deficiency anemia, unspecified; B35.1 Tinea unguium; R79.89 Other specified abnormal findings of blood chemistry; F41.8 Other specified anxiety disorders; M47.22 Other spondylosis with radiculopathy, cervical region; R53.1 Weakness; M54.5 Low back pain; E55.9 Vitamin D deficiency, unspecified; Z68.31 Body mass index [BMI] 31.0-31.9, adult
CPT/HCPCS: 36415; 71045; 80048; 82306; 82607; 82728; 82746; 82962; 83036; 83540; 83550; 83735; 84100; 84134; 84443; 84630; 87077; 87186; 92523; 92610; 93970; 94640; 97110; 97116; 97150; 97162; 97166; 97530; 97535; C1893; G0515; J1100; J1200; J1815; J2060; J2270; J3475; J3490; J7040; J7050; J7060; J7620; L0172

== ENCOUNTER 2019-08-30 07:52 | Inpatient (IN) | payer MEDICARE, MEDICAID ==
[2019-08-30] VITALS (7 sets, daily range): BP systolic 107–154; BP diastolic 49–80
[~2019-08-30] VITALS: Ht 157.5 cm; Wt 83.9 kg
[2019-08-30] MEDS ORDERED: ONDANSETRON HCL 4MG/2ML INJ IV STA (08:36)
[2019-08-30] MEDS ORDERED: MORPHINE SULFATE 4 MG/ML CPJ (NOT FOR IM USE) IV STA (08:36)
[2019-08-30 08:51] LABS: BASOPHILS % 2.6 % (0.0-2.0); EOSINOPHILS % 3.9 % (0.0-5.0); HEMATOCRIT. 22.3 % (36.0-48.0); LYMPHOCYTES % 19.7 % (20.0-50.0); MEAN CORPUSCULAR HEMOGLOBIN 18.5 pg (28.0-32.0); MEAN CORPUSCULAR VOLUME 63.9 fL (81.0-99.0); MEAN PLATELET VOLUME 7.4 fl (7.4-10.4); MONOCYTES % 9.1 % (2.0-8.0); NEUTROPHILS % 64.7 % (40.0-76.0); PLATELET 441 x1000/uL (130-400); RED BLOOD CELL COUNT 3.49 mill/uL (4.2-5.4); RED CELL DISTRIBUTION WIDTH 20.5 % (11.6-14.6)
[2019-08-30 08:58] LABS: INR 1.1; PROTHROMBIN TIME 11.6 sec (9.6-11.0)
[2019-08-30 09:00] LABS: HEMOGLOBIN. 6.5 g/dL (12.0-16.0)
[2019-08-30 09:01] LABS: CHLORIDE 103 mEq/L (98-107)
[2019-08-30 09:13] LABS: PLATELET ESTIMATE SLIGHTLY INCREASED
[2019-08-30] MEDS ORDERED: ONDANSETRON HCL 4MG/2ML INJ IV PRN (10:45)
[2019-08-30] MEDS ORDERED: ACETAMINOPHEN 325MG TABLET PO PRN (10:45)
[2019-08-30] MEDS ORDERED: DOCUSATE SODIUM 100MG CAPSULE PO PRN (10:45)
[2019-08-30 11:07] LABS: TOTAL IRON BINDING CAPACITY 452 ug/dL (250-450)
[2019-08-30] MEDS: HYDROMORPHONE HCL/PF 2MG/ML CPJ IV PRN ×3 (14:21→22:53)
[2019-08-30] MEDS ORDERED: BUSP-29 PO (16:59)
[2019-08-30] MEDS ORDERED: ASPI-1393 PO (16:59)
[2019-08-30] MEDS ORDERED: LISI40TA4 PO (16:59)
[2019-08-30] MEDS ORDERED: LORA-250 PO (16:59)
[2019-08-30] MEDS ORDERED: HYDR100C2 PO (16:59)
[2019-08-30] MEDS ORDERED: DULO60CA44 PO (16:59)
[2019-08-30] MEDS ORDERED: CLON-457 PO (16:59)
[2019-08-30] MEDS ORDERED: FURO-151 PO (16:59)
[2019-08-30] MEDS ORDERED: DOCU-138 PO (16:59)
[2019-08-30] MEDS ORDERED: HYDR50SY PO (16:59)
[2019-08-30] MEDS: GABAPENTIN 100MG CAPSULE PO SCH ×2 (18:17→22:53)
[2019-08-30] MEDS: LISINOPRIL 20MG TABLET PO SCH (19:09)
[2019-08-30] MEDS ORDERED: PNEUMOCOCCAL 23-VAL P-SAC VAC 0.5 ML IM ONE (20:15)
[2019-08-30] MEDS ORDERED: INFLUENZA VIRUS VACCINE(AFLURIA) 0.5ML SYR IM ONE (20:15)
[2019-08-30] MEDS ORDERED: HYDROMORPHONE HCL/PF 2MG/ML CPJ IV PRN (22:00)
[2019-08-30] MEDS: BUSPIRONE HCL 5MG TABLET PO SCH (22:53)
[2019-08-30] MEDS: ATENOLOL 50 MG TABLET PO SCH (22:53)
[2019-08-31] VITALS: BP 153/63
[2019-08-31] MEDS: HYDROCODONE/ACETAMINOPHEN 5/325MG TABLET PO PRN ×2 (00:36→06:56)
[2019-08-31] MEDS: HYDROMORPHONE HCL/PF 2MG/ML CPJ IV PRN ×4 (03:48→22:23)
[2019-08-31 04:00] VITALS: BP 158/78
[2019-08-31] MEDS: GABAPENTIN 100MG CAPSULE PO SCH ×3 (06:48→22:20)
[2019-08-31 07:02] LABS: BASOPHILS % 1.1 % (0.0-2.0); EOSINOPHILS % 4.4 % (0.0-5.0); HEMOGLOBIN. 8.3 g/dL (12.0-16.0); LYMPHOCYTES % 13.6 % (20.0-50.0); MEAN CORPUSCULAR HEMOGLOBIN 20.9 pg (28.0-32.0); MEAN CORPUSCULAR VOLUME 68.3 fL (81.0-99.0); MEAN PLATELET VOLUME 7.9 fl (7.4-10.4); NEUTROPHILS % 70.9 % (40.0-76.0); PLATELET 433 x1000/uL (130-400); RED BLOOD CELL COUNT 3.95 mill/uL (4.2-5.4); RED CELL DISTRIBUTION WIDTH 23.4 % (11.6-14.6)
[2019-08-31 07:12] LABS: CHLORIDE 106 mEq/L (98-107)
[2019-08-31 07:28] LABS: LDL CHOLESTEROL 28 mg/dL (5-100)
[2019-08-31 07:30] LABS: HDL CHOLESTEROL 27 mg/dL (40-59)
[2019-08-31 08:00] VITALS: BP 177/75
[2019-08-31] MEDS: AMLODIPINE 10MG TABLET PO SCH (10:47)
[2019-08-31] MEDS: DULOXETINE HCL 60MG DR CAPSULE PO SCH (10:47)
[2019-08-31] MEDS: LISINOPRIL 20MG TABLET PO SCH ×2 (10:47→22:21)
[2019-08-31 12:00] VITALS: BP 194/66
[2019-08-31] MEDS: MORPHINE SULFATE 15MG TABLET SR PO SCH ×2 (12:41→22:21)
[2019-08-31] MEDS: ATENOLOL 50 MG TABLET PO SCH ×2 (12:46→22:20)
[2019-08-31] MEDS: BUSPIRONE HCL 5MG TABLET PO SCH ×2 (12:47→22:21)
[2019-08-31 16:00] VITALS: BP 181/91
[2019-08-31] MEDS ORDERED: HYDROMORPHONE HCL/PF 2MG/ML CPJ IM PRN (16:15)
[2019-08-31 20:00] VITALS: BP 157/76
[2019-08-31] MEDS ORDERED: MORPHINE SULFATE 15MG TABLET SR PO SCH (21:00)
[2019-08-31] MEDS: OMEPRAZOLE 20MG CAPSULE EXTENDED RELEASE PO SCH (22:20)
[2019-08-31] MEDS: SENNOSIDES/DOCUSATE SOD 8.6/50MG TABLET PO SCH (22:21)
[2019-09-01] VITALS: BP 167/78
[2019-09-01] MEDS: IPRATROPIUM/ALBUTEROL 0.5-3(2.5)MG/3ML NEB HHN SCH ×4 (01:23→20:58)
[2019-09-01] MEDS: BUDESONIDE 0.5MG/2ML NEB HHN SCH (01:24)
[2019-09-01 04:00] VITALS: BP 148/62
[2019-09-01] MEDS: HYDROMORPHONE HCL/PF 2MG/ML CPJ IV PRN ×2 (04:51→14:47)
[2019-09-01] MEDS: GABAPENTIN 100MG CAPSULE PO SCH ×3 (07:04→21:31)
[2019-09-01] MEDS: OMEPRAZOLE 20MG CAPSULE EXTENDED RELEASE PO SCH ×2 (07:04→20:43)
[2019-09-01 07:46] LABS: BASOPHILS % 1.1 % (0.0-2.0); EOSINOPHILS % 3.2 % (0.0-5.0); HEMATOCRIT. 27.1 % (36.0-48.0); HEMOGLOBIN. 8.3 g/dL (12.0-16.0); LYMPHOCYTES % 9.6 % (20.0-50.0); MEAN CORPUSCULAR HEMOGLOBIN 20.8 pg (28.0-32.0); MEAN CORPUSCULAR VOLUME 67.9 fL (81.0-99.0); MEAN PLATELET VOLUME 7.9 fl (7.4-10.4); NEUTROPHILS % 77.1 % (40.0-76.0); PLATELET 441 x1000/uL (130-400); RED BLOOD CELL COUNT 3.99 mill/uL (4.2-5.4); RED CELL DISTRIBUTION WIDTH 23.8 % (11.6-14.6)
[2019-09-01 08:00] VITALS: BP 162/82
[2019-09-01 08:01] LABS: CHLORIDE 105 mEq/L (98-107)
[2019-09-01] MEDS: POLYETHYLENE GLYCOL 3350 (17GM) 1 DOSE PACK PO SCH (08:39)
[2019-09-01] MEDS: AMLODIPINE 10MG TABLET PO SCH (08:40)
[2019-09-01] MEDS: DOCUSATE SODIUM 100MG CAPSULE PO SCH ×2 (08:40→18:38)
[2019-09-01] MEDS: DULOXETINE HCL 60MG DR CAPSULE PO SCH (08:40)
[2019-09-01] MEDS: BUSPIRONE HCL 5MG TABLET PO SCH ×2 (08:40→20:42)
[2019-09-01] MEDS: MORPHINE SULFATE 15MG TABLET SR PO SCH ×2 (08:41→20:44)
[2019-09-01] MEDS: ATENOLOL 50 MG TABLET PO SCH ×2 (08:41→20:42)
[2019-09-01] MEDS: LISINOPRIL 20MG TABLET PO SCH ×2 (08:42→20:43)
[2019-09-01] MEDS ORDERED: LACTULOSE 20G/30ML UDC PO PRN (11:00)
[2019-09-01] MEDS ORDERED: NA PHOS,M-B/NA PHOS,DI-BA ENEMA 118ML PR PRN (11:00)
[2019-09-01] MEDS: HYDROCODONE/ACETAMINOPHEN 5/325MG TABLET PO PRN ×2 (11:05→19:08)
[2019-09-01 12:00] VITALS: BP 153/65
[2019-09-01] MEDS: IRON SUCROSE COMPLEX 100 MG/5 ML ML IV SCH (14:53)
[2019-09-01 16:00] VITALS: BP 157/70
[2019-09-01] MEDS ORDERED: BISACODYL 5MG TABLET PO SCH (17:45)
[2019-09-01] MEDS: METOCLOPRAMIDE 10MG/10 ML UDC PO SCH (18:38)
[2019-09-01 20:00] VITALS: BP 154/71
[2019-09-01] MEDS: SENNOSIDES/DOCUSATE SOD 8.6/50MG TABLET PO SCH (20:42)
[2019-09-01] MEDS: LACTULOSE 20G/30ML UDC PO SCH (21:32)
[2019-09-02] VITALS: BP 146/64
[2019-09-02] MEDS: METOCLOPRAMIDE 10MG/10 ML UDC PO SCH ×3 (00:04→11:45)
[2019-09-02] MEDS: HYDROMORPHONE HCL/PF 2MG/ML CPJ IV PRN ×2 (00:05→09:11)
[2019-09-02] MEDS: IPRATROPIUM/ALBUTEROL 0.5-3(2.5)MG/3ML NEB HHN SCH ×2 (02:04→09:18)
[2019-09-02] MEDS: BUDESONIDE 0.5MG/2ML NEB HHN SCH ×2 (02:05→09:15)
[2019-09-02] MEDS: HYDROCODONE/ACETAMINOPHEN 5/325MG TABLET PO PRN (03:37)
[2019-09-02 04:00] VITALS: BP 152/63
[2019-09-02] MEDS: LACTULOSE 20G/30ML UDC PO SCH (06:00)
[2019-09-02] MEDS: GABAPENTIN 100MG CAPSULE PO SCH (06:42)
[2019-09-02] MEDS: OMEPRAZOLE 20MG CAPSULE EXTENDED RELEASE PO SCH (06:42)
[2019-09-02 08:00] VITALS: BP 152/77
[2019-09-02] MEDS: DOCUSATE SODIUM 100MG CAPSULE PO SCH (08:17)
[2019-09-02] MEDS: AMLODIPINE 10MG TABLET PO SCH (08:17)
[2019-09-02] MEDS: BUSPIRONE HCL 5MG TABLET PO SCH (08:17)
[2019-09-02] MEDS: POLYETHYLENE GLYCOL 3350 (17GM) 1 DOSE PACK PO SCH (08:17)
[2019-09-02] MEDS: LISINOPRIL 20MG TABLET PO SCH (08:18)
[2019-09-02] MEDS: ATENOLOL 50 MG TABLET PO SCH (08:18)
[2019-09-02] MEDS: MORPHINE SULFATE 15MG TABLET SR PO SCH (08:20)
[2019-09-02] MEDS: DULOXETINE HCL 60MG DR CAPSULE PO SCH (08:27)
[2019-09-02] MEDS: IRON SUCROSE COMPLEX 100 MG/5 ML ML IV SCH (09:11)
[2019-09-02 11:57] VITALS: BP 152/77
[2019-09-02 12:00] VITALS: BP 138/59
== END 2019-09-02 14:25 | disposition home or self-care (01) | DRG 378 ==
LOC: ER 08:01 → 6WST 09:39 → EDBEDREQ 09:40 → ENRESERV 10:06
PROVIDERS: ADMIT Internal Medicine Nephrology; ATTEND Internal Medicine Nephrology
PROC: 30233N1 Transfusion of Nonautologous Red Blood Cells into Peripheral Vein, Percutaneous Approach (ICD-10-PCS; principal; 2019-08-30)
DX: K92.2 Gastrointestinal hemorrhage, unspecified (principal); E44.0 Moderate protein-calorie malnutrition; J96.10 Chronic respiratory failure, unspecified whether with hypoxia or hypercapnia; D50.9 Iron deficiency anemia, unspecified; E11.65 Type 2 diabetes mellitus with hyperglycemia; E66.9 Obesity, unspecified; E78.5 Hyperlipidemia, unspecified; F12.90 Cannabis use, unspecified, uncomplicated; J44.9 Chronic obstructive pulmonary disease, unspecified; M79.7 Fibromyalgia; I11.9 Hypertensive heart disease without heart failure; I25.10 Atherosclerotic heart disease of native coronary artery without angina pectoris; G89.4 Chronic pain syndrome; F20.9 Schizophrenia, unspecified; F17.200 Nicotine dependence, unspecified, uncomplicated; Z68.33 Body mass index [BMI] 33.0-33.9, adult; E78.00 Pure hypercholesterolemia, unspecified; K59.00 Constipation, unspecified; Z99.81 Dependence on supplemental oxygen; Z86.73 Personal history of transient ischemic attack (TIA), and cerebral infarction without residual deficits; Z79.899 Other long term (current) drug therapy; Z79.84 Long term (current) use of oral hypoglycemic drugs
CPT/HCPCS: 36415; 71045; 74176; 80048; 80061; 82728; 82962; 83540; 83550; 84484; 86850; 86900; 86920; 90686; 93005; 93970; 94640; 96374; 96375; 97163; 97166; 99285; A6261; C1893; J1170; J2270; J2405; J7040; J7620; J7626; J8597; P9016; P9021

== ENCOUNTER 2020-01-26 08:08 | Emergency (ER) | payer MEDICARE, MEDICAID ==
[~2020-01-26] VITALS: Ht 157.5 cm; Wt 75.0 kg
[~2020-01-26 08:08] MED LIST changes: -ASPI-1159 PO; +ASPI-1497 PO; -ATEN50TA PO; -ATOR20TA65 MT; -ATOR40TA70 PO; -BACL-141 GT; +BUSP10TA4 PO; -BUSP7.5T6 MT; -CANA100T MT; +CLON-457 PO; -CLON0.2T PO; -CLOT14.2 TP; -DIPH25TA24 MT; +DULO60CA44 PO; -DULO60CA63 MT; -ECON15CR11 TP; -GABA-290 PO; +HYDR100C2 PO; +HYDR50SY PO; -HYDR50TA55 MT; -INSLAN SQ; -LIRA0.6P SQ; +LORA-250 PO; -LORA1TAB MT; -LYR25 PO; -METF-416 PO; -NASOI BOTHNSTRLS; -OLOP2.5D EACHEYE; -POTA10CA42 MT; -PREG100C MT
[2020-01-26] MEDS ORDERED: MORPHINE SULFATE 4 MG/ML CPJ (NOT FOR IM USE) IV STA (08:52)
[2020-01-26 09:21] LABS: BASOPHILS % 1.3 % (0.0-2.0); EOSINOPHILS % 5.2 % (0.0-5.0); HEMATOCRIT. 33.6 % (36.0-48.0); HEMOGLOBIN. 11.2 g/dL (12.0-16.0); MEAN CORPUSCULAR HEMOGLOBIN 28.1 pg (28.0-32.0); MEAN CORPUSCULAR VOLUME 84.4 fL (81.0-99.0); MONOCYTES % 7.9 % (2.0-8.0); NEUTROPHILS % 50.6 % (40.0-76.0); PLATELET 284 x1000/uL (130-400); RED BLOOD CELL COUNT 3.98 mill/uL (4.2-5.4); RED CELL DISTRIBUTION WIDTH 16.9 % (11.6-14.6)
[2020-01-26 09:26] LABS: INR 0.9; PROTHROMBIN TIME 10.2 sec (9.6-11.0)
[2020-01-26 09:37] LABS: CHLORIDE 102 mEq/L (98-107)
[2020-01-26 11:45] VITALS: BP 122/81
== END 2020-01-26 11:51 | disposition home or self-care (01) ==
LOC: ER 08:08
DX: R10.9 Unspecified abdominal pain (principal); E11.9 Type 2 diabetes mellitus without complications; I10 Essential (primary) hypertension; F12.10 Cannabis abuse, uncomplicated; Z88.5 Allergy status to narcotic agent; Z79.899 Other long term (current) drug therapy; Z98.890 Other specified postprocedural states
CPT/HCPCS: 36415; 74176; 80053; 83690; 85025; 85610; 96374; 99284; J2270

== ENCOUNTER → 2021-04-09 | Outpatient (CLI) | payer MEDICARE, MEDICAID ==
[~2021-04-09] MED LIST changes: +ALBU18HF2 IH; +AMLO10TA80 PO; -ASPI-1497 PO; +BUSP7.5T7 PO; +CHLO25TA2 PO; +CLIN300C12 PO; -CLON-457 PO; +DIPH25TA23 PO; +DULO30CA52 PO; +ERGO500013 PO; +FERR325T6 PO; +FLUT15.844 BOTHNSTRLS; -FURO-151 PO; +FURO40TA5 PO; -HYDR100C2 PO; -HYDR50SY PO; +INSU100I19 SQ; +INSU100I41 SUBCUT; +KETO15CR2 TP; +LEVO50TA8 PO; +LISI40TA13 PO; -LISI40TA4 PO; +NATE120T PO; +ONDA8TAB13 PO; +POLY17PO3 PO; +POTA10CA42 PO; +SEMA1PEN3 SUBCUT; +TERB250T51 PO
== END | disposition home or self-care (01) ==
LOC: LAB 10:33
PROVIDERS: ATTEND Internal Medicine Gastroenterology
DX: Z01.812 Encounter for preprocedural laboratory examination (principal); Z20.822 Contact with and (suspected) exposure to COVID-19
CPT/HCPCS: 87426

== ENCOUNTER → 2021-04-11 | Day surgery (SDC) | payer MEDICARE, MEDICAID ==
[~2021-04-11] VITALS: Ht 157.5 cm; Wt 92.1 kg
[~2021-04-11] MED LIST changes: -BUSP10TA4 PO; -DULO60CA44 PO; +HYDRALAZINE 20MG/ML VIAL ONE; +KETAMINE HCL 50 MG/ML 10ML ONE; +MAGNESIUM SULFATE 5GM/10ML VIAL IV ONE; +MIDAZOLAM HCL 2 MG/2 ML VIAL ONE; +PROPOFOL 200MG/20ML VIAL IV ONE; +SODIUM CHLORIDE 0.9% 1,000 ML IV SCH
== END | disposition home or self-care (01) ==
LOC: OR 09:22
PROVIDERS: ATTEND Internal Medicine Gastroenterology
DX: D50.9 Iron deficiency anemia, unspecified (principal); R19.7 Diarrhea, unspecified; K57.30 Diverticulosis of large intestine without perforation or abscess without bleeding; K64.8 Other hemorrhoids; K29.50 Unspecified chronic gastritis without bleeding; K44.9 Diaphragmatic hernia without obstruction or gangrene; K21.00 Gastro-esophageal reflux disease with esophagitis, without bleeding; K31.89 Other diseases of stomach and duodenum; K63.89 Other specified diseases of intestine; I10 Essential (primary) hypertension; E11.9 Type 2 diabetes mellitus without complications; G89.4 Chronic pain syndrome; E66.01 Morbid (severe) obesity due to excess calories; M79.7 Fibromyalgia; I25.10 Atherosclerotic heart disease of native coronary artery without angina pectoris; J44.9 Chronic obstructive pulmonary disease, unspecified; F41.9 Anxiety disorder, unspecified; F32.9 Major depressive disorder, single episode, unspecified; Z86.73 Personal history of transient ischemic attack (TIA), and cerebral infarction without residual deficits; Z79.899 Other long term (current) drug therapy; Z79.82 Long term (current) use of aspirin; Z79.84 Long term (current) use of oral hypoglycemic drugs; Z98.890 Other specified postprocedural states
CPT/HCPCS: 43239; 45378; 82962; 88305; 88312; 88313; C1893; J0360; J2250; J2704; J3475; J3490

== ENCOUNTER 2021-10-14 14:07 | Inpatient (IN) | payer MEDICARE, MEDICAID ==
[~2021-10-14] VITALS: Ht 157.5 cm; Wt 85.7 kg
[~2021-10-14 14:07] MED LIST changes: +ERGO1250 PO; -ERGO500013 PO; -HYDRALAZINE 20MG/ML VIAL ONE; -KETAMINE HCL 50 MG/ML 10ML ONE; -MAGNESIUM SULFATE 5GM/10ML VIAL IV ONE; -MIDAZOLAM HCL 2 MG/2 ML VIAL ONE; -PROPOFOL 200MG/20ML VIAL IV ONE; -SODIUM CHLORIDE 0.9% 1,000 ML IV SCH
[2021-10-14 16:30] LABS: BASOPHILS % 0.9 % (0.0-2.0); EOSINOPHILS % 2.7 % (0.0-5.0); HEMATOCRIT. 39.6 % (36.0-48.0); HEMOGLOBIN. 13.3 g/dL (12.0-16.0); LYMPHOCYTES % 31.1 % (20.0-50.0); MEAN CORPUSCULAR HEMOGLOBIN 29.5 pg (28.0-32.0); MEAN CORPUSCULAR VOLUME 88.3 fL (81.0-99.0); MEAN PLATELET VOLUME 7.8 fl (7.4-10.4); MONOCYTES % 5.8 % (2.0-8.0); NEUTROPHILS % 59.5 % (40.0-76.0); PLATELET 373 x1000/uL (130-400); RED BLOOD CELL COUNT 4.49 mill/uL (4.2-5.4); RED CELL DISTRIBUTION WIDTH 13.5 % (11.6-14.6)
[2021-10-14 16:33] LABS: CHLORIDE 100 mEq/L (98-107)
[2021-10-14] MEDS ORDERED: MORPHINE SULFATE 4 MG/ML CPJ (NOT FOR IM USE) IV STA (20:58)
[2021-10-14] MEDS ORDERED: ONDANSETRON HCL 4MG/2ML INJ IV STA (20:58)
[2021-10-14] MEDS ORDERED: SODIUM CHLORIDE 0.9% 1,000 ML IV ONE (21:00)
[2021-10-14 22:56] LABS: CLARITY URINE CLEAR (CLEAR); COLOR URINE YELLOW (YELLOW); KETONES URINE NEGATIVE (NEGATIVE); LEUKOCYTE ESTERASE URINE NEGATIVE (NEGATIVE); NITRITE URINE NEGATIVE (NEGATIVE); OCCULT BLOOD URINE NEGATIVE (NEGATIVE); PROTEIN URINE NEGATIVE (NEGATIVE); SPECIFIC GRAVITY URINE 1.006 (1.005-1.030); UROBILINOGEN URINE 0.2 E.U./dL (0.2-1.0)
[2021-10-15] MEDS ORDERED: ASPIRIN 325MG EC TABLET PO ONE
[2021-10-15] MEDS ORDERED: GUAIFENESIN 200MG/10ML SUGAR FREE UDC PO PRN (06:15)
[2021-10-15] MEDS ORDERED: ACETAMINOPHEN 325MG TABLET PO PRN (06:15)
[2021-10-15] MEDS ORDERED: HYDRALAZINE 20MG/ML VIAL IV PRN (06:15)
[2021-10-15] MEDS ORDERED: ONDANSETRON HCL 4MG/2ML INJ IV PRN (06:15)
[2021-10-15] MEDS ORDERED: DIPHENHYDRAMINE 50MG/ML VIAL IV PRN (06:15)
[2021-10-15] MEDS ORDERED: IPRATROPIUM/ALBUTEROL 0.5-3(2.5)MG/3ML NEB HHN PRN (06:15)
[2021-10-15] MEDS ORDERED: CLONIDINE 0.1MG TABLET PO PRN (06:15)
[2021-10-15] MEDS ORDERED: NALOXONE HCL 0.4MG/ML VIAL IV PRN (07:30)
[2021-10-15] MEDS ORDERED: MAGNESIUM/ALUMINUM HYDROXIDE/SIMETHICONE 30ML UDC PO PRN (09:00)
[2021-10-15] MEDS ORDERED: DOCUSATE SODIUM 100MG CAPSULE PO PRN (09:00)
[2021-10-15 10:29] VITALS: BP 164/90
[2021-10-15 10:31] VITALS: BP 164/90
[2021-10-15] MEDS: ENOXAPARIN 40MG/0.4ML SYR SUBCUT SCH (11:34)
[2021-10-15 12:18] VITALS: BP 148/74
[2021-10-15] MEDS: MORPHINE SULFATE 2 MG/ML CPJ (NOT FOR IM USE) IV PRN ×3 (12:52→23:52)
[2021-10-15] MEDS: SODIUM CHLORIDE 0.9% INJ 3ML FLUSH IVF SCH ×2 (13:25→21:19)
[2021-10-15] MEDS: LORAZEPAM 2MG/ML CPJ IV PRN ×2 (13:31→21:12)
[2021-10-15] MEDS ORDERED: DEXTROSE 50% WATER 50ML SYRINGE IV PRN (14:30)
[2021-10-15 15:55] VITALS: BP 172/82
[2021-10-15] MEDS: BLOOD SUGAR DIAGNOSTIC STRIP TEST SCH ×2 (16:46→21:19)
[2021-10-15] MEDS: INSULIN LISPRO 100 UNITS/ML SUBCUT SCH ×2 (16:46→21:19)
[2021-10-15 20:00] VITALS: BP 216/108
[2021-10-15] MEDS: HYDROCODONE/ACETAMINOPHEN 5/325MG TABLET PO PRN (21:13)
[2021-10-16] VITALS: BP 141/71
[2021-10-16 04:00] VITALS: BP 141/82
[2021-10-16] MEDS: LORAZEPAM 2MG/ML CPJ IV PRN ×2 (04:41→12:35)
[2021-10-16] MEDS: HYDROCODONE/ACETAMINOPHEN 5/325MG TABLET PO PRN (04:41)
[2021-10-16] MEDS: BLOOD SUGAR DIAGNOSTIC STRIP TEST SCH ×2 (06:30→12:00)
[2021-10-16] MEDS: SODIUM CHLORIDE 0.9% INJ 3ML FLUSH IVF SCH ×2 (06:30→12:01)
[2021-10-16 06:57] LABS: CHLORIDE 102 mEq/L (98-107)
[2021-10-16 07:30] VITALS: BP 138/78
[2021-10-16 07:46] LABS: BASOPHILS % 0.9 % (0.0-2.0); EOSINOPHILS % 2.2 % (0.0-5.0); HEMATOCRIT. 39.5 % (36.0-48.0); HEMOGLOBIN. 13.3 g/dL (12.0-16.0); LYMPHOCYTES % 29.7 % (20.0-50.0); MEAN CORPUSCULAR HEMOGLOBIN 29.8 pg (28.0-32.0); MEAN CORPUSCULAR VOLUME 88.4 fL (81.0-99.0); MONOCYTES % 9.4 % (2.0-8.0); NEUTROPHILS % 57.8 % (40.0-76.0); PLATELET 372 x1000/uL (130-400); RED BLOOD CELL COUNT 4.47 mill/uL (4.2-5.4); RED CELL DISTRIBUTION WIDTH 13.4 % (11.6-14.6)
[2021-10-16] MEDS: ENOXAPARIN 40MG/0.4ML SYR SUBCUT SCH (08:54)
[2021-10-16] MEDS: INSULIN LISPRO 100 UNITS/ML SUBCUT SCH ×2 (08:54→12:00)
[2021-10-16] MEDS: MORPHINE SULFATE 2 MG/ML CPJ (NOT FOR IM USE) IV PRN (10:18)
[2021-10-16] MEDS ORDERED: MORPHINE SULFATE 2 MG/ML CPJ (NOT FOR IM USE) IV PRN (10:45)
[2021-10-16] MEDS ORDERED: OXYCODONE HCL/ACETAMINOPHEN 5/325MG TABLET PO PRN (10:45)
[2021-10-16 12:20] VITALS: BP 128/82
[2021-10-16 14:41] VITALS: BP 128/76
[2021-10-16 16:03] VITALS: BP 128/76
== END 2021-10-16 16:55 | disposition home or self-care (01) | DRG 552 ==
LOC: ER 14:07 → 6WST 10-15 01:03 → EDBEDREQTM 10-15 01:25 → EDBEDREQ 10-15 01:25 → CANRESERV 10-15 03:52 → ENRESERV 10-15 03:52
PROVIDERS: ADMIT Internal Medicine; ATTEND Internal Medicine
DX: M51.16 Intervertebral disc disorders with radiculopathy, lumbar region (principal); E87.1 Hypo-osmolality and hyponatremia; G89.4 Chronic pain syndrome; J44.9 Chronic obstructive pulmonary disease, unspecified; Z20.822 Contact with and (suspected) exposure to COVID-19; M50.10 Cervical disc disorder with radiculopathy, unspecified cervical region; I10 Essential (primary) hypertension; E78.00 Pure hypercholesterolemia, unspecified; E78.5 Hyperlipidemia, unspecified; E11.42 Type 2 diabetes mellitus with diabetic polyneuropathy; Z90.49 Acquired absence of other specified parts of digestive tract; Z99.3 Dependence on wheelchair; Z99.81 Dependence on supplemental oxygen; Z88.5 Allergy status to narcotic agent; Z98.890 Other specified postprocedural states
CPT/HCPCS: 36415; 71045; 74176; 80053; 81003; 82962; 83036; 83880; 84484; 85025; 87426; 93005; 99285; J0360; J1650; J1815; J2060; J2270; J2405; J7030

== ENCOUNTER 2022-05-12 19:51 | Emergency (ER) | payer MEDICARE, MEDICAID ==
[~2022-05-12] VITALS: Ht 162.6 cm; Wt 91.0 kg
[~2022-05-12 19:51] MED LIST changes: +CLIN-194 PO; -CLIN300C12 PO; -TERB250T51 PO; +TERB250T88 PO
[2022-05-12 19:53] VITALS: BP 148/90
[2022-05-12] MEDS ORDERED: GABAPENTIN 300MG CAPSULE PO ONE (20:30)
[2022-05-12 21:07] LABS: BASOPHILS % 1.4 % (0.0-2.0); EOSINOPHILS % 2.7 % (0.0-5.0); HEMATOCRIT. 33.4 % (36.0-48.0); HEMOGLOBIN. 11.2 g/dL (12.0-16.0); LYMPHOCYTES % 29.7 % (20.0-50.0); MEAN CORPUSCULAR HEMOGLOBIN 28.9 pg (28.0-32.0); MEAN CORPUSCULAR VOLUME 86.1 fL (81.0-99.0); MONOCYTES % 6.5 % (2.0-8.0); NEUTROPHILS % 59.7 % (40.0-76.0); PLATELET 435 x1000/uL (130-400); RED BLOOD CELL COUNT 3.88 mill/uL (4.2-5.4); RED CELL DISTRIBUTION WIDTH 14.4 % (11.6-14.6)
[2022-05-12 21:14] LABS: CHLORIDE 98 mEq/L (98-107)
[2022-05-12 21:20] LABS: ETHANOL BLOOD < 10 mg/dL
== END 2022-05-12 21:57 ==
LOC: ER 19:51
DX: G62.9 Polyneuropathy, unspecified (principal); J44.1 Chronic obstructive pulmonary disease with (acute) exacerbation; E11.9 Type 2 diabetes mellitus without complications; I10 Essential (primary) hypertension
CPT/HCPCS: 36415; 80053; 80320; 85025; 99283; G0480